=== PATIENT | female | born 1970 | race Caucasian/White ===

== ENCOUNTER → 2019-03-03 13:29 | Outpatient (CLI) | payer MEDICAID, SELFPAY ==
[2019-03-03 14:00] LABS: Basophils # 0.1 K/mm3 (0-0.2); Basophils % 1.1 % (0.1-2.0); Eosinophils # 0.2 K/mm3 (0.0-0.4); Eosinophils % 1.9 % (0.1-12.0); Hematocrit 46.9 % (37.0-47.0); Hemoglobin 14.6 g/dL (12.2-16.2); Lymphocytes # 2.1 K/mm3 (0.7-4.5); Lymphocytes % 24.2 % (10-50); Mean Corpuscular HGB Conc 31.2 g/dL (31.8-35.4); Mean Corpuscular Volume 93.2 fl (81-99); Mean Platelet Volume 7.7 fl (7.4-10.4); Monocytes # 0.5 K/mm3 (0.1-1.0); Monocytes % 5.6 % (1.7-9.3); Neutrophils # 5.9 K/mm3 (1.8-7.8); Neutrophils % 67.1 % (37.0-80.0); Platelet Count 483 K/mm3 (142-424); Red Blood Count 5.03 M/mm3 (4.20-5.40); Red Cell Distribution Width 14.5 % (11.5-17.5); White Blood Count 8.7 K/mm3 (4.8-10.8)
[2019-03-03 14:10] LABS: Amphetamine/Metha Screen,Urine Negative ng/mL (<1000); Barbiturates Screen,Urine Negative ng/mL (<200); Benzodiazepines Screen,Urine Negative ng/mL (<200); Cannabinoid Screen,Urine Positive ng/mL (<50); Cocaine Screen,Urine Negative ng/mL (<300); Methadone Screen,Urine Negative ng/mL (<300); Opiate Screen,Urine Negative ng/mL (<300); Phencyclidine Screen,Urine Negative ng/mL (<25)
[2019-03-03 15:03] LABS: Alanine Aminotransferase 368 U/L (12-78); Albumin/Globulin Ratio 0.9 (1.1-1.8); Alkaline Phosphatase 244 U/L (46-116); Anion Gap 15.3 mEq/L (5-15); Aspartate Amino Transferase 209 U/L (15-37); Bilirubin,Total 0.5 mg/dL (0.2-1.0); Blood Urea Nitrogen 12 mg/dL (7-18); Calcium 9.4 mg/dL (8.5-10.1); Carbon Dioxide 29 mmol/L (21.0-32.0); Chloride 104 mmol/L (98-107); Chol/HDL Ratio 3.4 (1-3.5); Cholesterol 171 mg/dL (140-200); Creatinine,Serum 0.95 mg/dL (0.55-1.02); Estimated Glomerular Filt Rate 63 ml/min (>60); Free T4 (Free Thyroxine) 0.97 ng/dl (0.76-1.46); GFR (African American) 76 ML/MIN (>60); Globulin 4.5 gm/dl (1.3-3.2); Glucose 92 mg/dL (74-106); HDL Cholesterol 51 mg/dL (29-89); LDL Cholesterol 100 mg/dL (0-130); Potassium 4.3 mmoL/L (3.5-5.1); Sodium 144 mmol/L (136-145); Thyroid Stimulating Hormone 6.03 uIU/ml (0.358-3.740); Total Protein,Serum 8.5 gm/dL (6.4-8.2); Triglycerides 99 mg/dL (30-200); VLDL Cholesterol 20 mg/dL (0-40)
[2019-03-04 07:14] LABS: Hep A Ab, IgM Negative (Negative); Hepatitis B Core Antibody IgM Negative (Negative); Hepatitis B Surface Antigen Negative (Negative)
[2019-03-04 17:48] LABS: Hepatitis C Antibody >11.0 s/co ratio (0.0-0.9); Vitamin D 25 Hydroxy 43.9 ng/mL (30.0-100.0)
[2019-03-10 16:11] LABS: HCV Genotype Charge YES; Hepatitis C Genotype 3 (.)
== END ==
PROVIDERS: Visit Provider Emergency Medicine
DX: R53.83 Other fatigue (principal); M54.9 Dorsalgia, unspecified; R94.5 Abnormal results of liver function studies; M54.16 Radiculopathy, lumbar region; R51 Headache; Z72.0 Tobacco use
CPT/HCPCS: 80053; 80061; 80074; 80305; 82652; 84439; 84443; 85025; 87522; 87902

== ENCOUNTER 2019-03-26 10:17 | Outpatient (CLI) | payer MEDICAID, SELFPAY ==
[2019-03-26 10:35] VITALS: BMI 25.2
[2019-03-26 10:43] VITALS: BP 138/87; PULSE 62; RESP 18; TEMP 36.2; O2SAT 98
[2019-03-26 11:13] LABS: Anion Gap 12.6 mEq/L (5-15); Blood Urea Nitrogen 13 mg/dL (7-18); Calcium 9.5 mg/dL (8.5-10.1); Carbon Dioxide 27 mmol/L (21.0-32.0); Chloride 103 mmol/L (98-107); Creatinine Clearance Estimated 81 mL/min (50-200); Creatinine,Serum 0.98 mg/dL (0.55-1.02); Estimated Glomerular Filt Rate 61 ml/min (>60); GFR (African American) 73 ML/MIN (>60); Glucose 138 mg/dL (74-106); Potassium 3.6 mmoL/L (3.5-5.1); Sodium 139 mmol/L (136-145)
[2019-03-26 12:15] VITALS: BP 115/91; PULSE 78; RESP 20; TEMP 36.2; O2SAT 97
[2019-03-26 12:50] VITALS: BP 128/79; PULSE 55; RESP 20
== END 2019-03-26 12:50 | disposition home or self-care (01) ==
LOC: INF 10:21
PROVIDERS: PCP Emergency Medicine; Visit Provider Emergency Medicine
DX: T67.5XXA Heat exhaustion, unspecified, initial encounter (principal)
CPT/HCPCS: 80048; 96360; 96361; 96375; J2405

== ENCOUNTER → 2019-03-30 10:12 | Outpatient (CLI) | payer MEDICAID, SELFPAY ==
--- NOTE | 2019-03-30 10:18 | MR_ITS ---
MR lumbar spine wo con HISTORY: ITS.REASON: back pain ORDERING PHYSICIAN: John John MD PATIENT AGE: 48 years Comparison: None TECHNIQUE: Standard multiplanar multiecho sequences are performed without contrast. 3-D MIP and myelographic images are also rendered and reviewed FINDINGS: Alignment, vertebral body heights and signal from the osseous marrow elements are normal. Disc space heights are normal. L1-2 shows a small central posterior protrusion of the nucleus pulposus without a mild ventral thecal sac deformity. There is no central canal stenosis or lateralization. The remainder of the disc levels are normal without bulges or herniation or central canal stenosis. Conus area and cauda equina nerve roots are normal. Nerve root and foraminal areas are normal. Paraspinal structures are unremarkable. There is mild to moderate facet hypertrophy bilaterally without mass effect at L5-S1. The remainder of the posterior elements are intact and appear normal. IMPRESSION: L1-2 small central disc herniation of the protrusion type with only mild ventral thecal sac deformity.
== END ==
PROVIDERS: PCP Emergency Medicine; Visit Provider Emergency Medicine
DX: M54.5 Low back pain (principal); R39.89 Other symptoms and signs involving the genitourinary system
CPT/HCPCS: 72148; 76376; 87086

== ENCOUNTER → 2019-03-30 17:01 | Outpatient (CLI) | payer MEDICAID, SELFPAY | PROVIDERS: Visit Provider Emergency Medicine | DX: R39.89 Other symptoms and signs involving the genitourinary system (principal) | CPT/HCPCS: 87086 ==

== ENCOUNTER → 2019-04-13 17:51 | Outpatient (CLI) | payer MEDICAID, SELFPAY ==
[2019-04-13 19:05] LABS: Amphetamine/Metha Screen,Urine Negative ng/mL (<1000); Barbiturates Screen,Urine Negative ng/mL (<200); Benzodiazepines Screen,Urine Positive ng/mL (<200); Cannabinoid Screen,Urine Positive ng/mL (<50); Cocaine Screen,Urine Negative ng/mL (<300); Methadone Screen,Urine Negative ng/mL (<300); Opiate Screen,Urine Positive ng/mL (<300); Phencyclidine Screen,Urine Negative ng/mL (<25)
[2019-04-21 07:18] LABS: Alprazolam Negative (Cutoff=100); Benzodiazepines Positive ng/mL (Cutoff=100); Clonazepam Negative (Cutoff=100); Flurazepam Negative (Cutoff=100); Lorazepam Negative (Cutoff=100); Midazolam Negative (Cutoff=100); Temazepam Positive (.); Triazolam Negative (Cutoff=100)
== END ==
PROVIDERS: Visit Provider Emergency Medicine
DX: Z79.899 Other long term (current) drug therapy (principal)
CPT/HCPCS: 80305; 80346

== ENCOUNTER → 2019-08-25 13:54 | Outpatient (CLI) | payer MEDICAID, SELFPAY ==
--- NOTE | 2019-08-25 13:59 | XR_ITS ---
PROCEDURE: XR WRIST LT MIN 3V CLINICAL INDICATION: left wrist pain Left wrist pain COMPARISON: No exams were available for comparison FINDINGS: There has been prior ORIF with a volar bone plate. Mild bony hypertrophic changes are present along the medial aspect of the distal radius. There is an ununited ulnar styloid avulsion fracture versus ununited ossification center. Small calcific density is present lateral to the 1st metacarpal-carpal joint. No acute fracture or dislocation. IMPRESSION: Prior ORIF old distal radial fracture with chronic changes, no acute finding Dictated by: Lukasz Harman MD 08/25/2019 14:15 Electronically signed by Lukasz Harman MD in [place] 08/25/2019 14:15
[2019-08-25 15:52] LABS: Basophils # 0.1 K/mm3 (0-0.2); Basophils % 1.7 % (0.1-2.0); Eosinophils # 0.4 K/mm3 (0.0-0.4); Eosinophils % 6.5 % (0.1-12.0); Hematocrit 41.8 % (37.0-47.0); Hemoglobin 13.3 g/dL (12.2-16.2); Lymphocytes # 2.6 K/mm3 (0.7-4.5); Lymphocytes % 44.7 % (10-50); Mean Corpuscular HGB Conc 31.8 g/dL (31.8-35.4); Mean Corpuscular Hemoglobin 29.3 pg (27.0-31.2); Mean Corpuscular Volume 92.3 fl (81-99); Mean Platelet Volume 7.4 fl (7.4-10.4); Monocytes # 0.3 K/mm3 (0.1-1.0); Monocytes % 5.5 % (1.7-9.3); Neutrophils # 2.4 K/mm3 (1.8-7.8); Neutrophils % 41.6 % (37.0-80.0); Platelet Count 414 K/mm3 (142-424); Red Blood Count 4.53 M/mm3 (4.20-5.40); Red Cell Distribution Width 13.9 % (11.5-17.5); White Blood Count 5.8 K/mm3 (4.8-10.8)
[2019-08-25 16:10] LABS: INR 0.93 (0.9-1.1); Prothrombin Time 9.7 seconds (9.4-11.8)
[2019-08-25 17:12] LABS: Alanine Aminotransferase 251 U/L (12-78); Albumin Level 3.7 gm/dL (3.4-5.0); Albumin/Globulin Ratio 0.9 (1.1-1.8); Alkaline Phosphatase 324 U/L (46-116); Anion Gap 13.5 mEq/L (5-15); Aspartate Amino Transferase 98 U/L (15-37); Bilirubin,Total 0.3 mg/dL (0.2-1.0); Blood Urea Nitrogen 22 mg/dL (7-18); Calcium 8.7 mg/dL (8.5-10.1); Carbon Dioxide 27 mmol/L (21.0-32.0); Chloride 102 mmol/L (98-107); Creatinine,Serum 0.93 mg/dL (0.55-1.02); Estimated Glomerular Filt Rate 64 ml/min (>60); GFR (African American) 78 ML/MIN (>60); Globulin 4.1 gm/dl (1.3-3.2); Glucose 95 mg/dL (74-106); Potassium 4.5 mmoL/L (3.5-5.1); Sodium 138 mmol/L (136-145); Total Protein,Serum 7.8 gm/dL (6.4-8.2)
[2019-09-07 15:25] LABS: HCV Genotype 3
[2019-09-07 15:26] LABS: Hep A Ab, IgM NEGATIVE; Hep A Ab, Total POSITIVE
[2019-09-07 15:28] LABS: Hepatitis B Surface Antigen NON REACTIVE
[2019-09-07 15:29] LABS: Hep B Core Ab, Total NEGATIVE
[2019-09-07 15:30] LABS: HIV Screen 4th Generation wRfx NON REACTIVE
== END ==
PROVIDERS: PCP Emergency Medicine; Visit Provider Orthopaedic Surgery
DX: M25.532 Pain in left wrist (principal); B19.20 Unspecified viral hepatitis C without hepatic coma
CPT/HCPCS: 36415; 73110; 80053; 85025; 85610; 86703; 86704; 86706; 86708; 87340; 87522; G0432

== ENCOUNTER → 2019-08-25 15:24 | Outpatient (CLI) | payer MEDICAID, SELFPAY | PROVIDERS: Visit Provider Emergency Medicine | DX: B19.20 Unspecified viral hepatitis C without hepatic coma (principal) | CPT/HCPCS: 36415; 80053; 85025; 85610; 86703; 86704; 86706; 86708; 87340; 87522; G0432 ==

== ENCOUNTER → 2019-09-22 14:19 | Outpatient (CLI) | payer MEDICAID, SELFPAY ==
[2019-09-22 16:24] LABS: Amphetamine/Metha Screen,Urine Positive ng/mL (<1000); Barbiturates Screen,Urine Negative ng/mL (<200); Benzodiazepines Screen,Urine Negative ng/mL (<200); Cannabinoid Screen,Urine Negative ng/mL (<50); Cocaine Screen,Urine Negative ng/mL (<300); Methadone Screen,Urine Negative ng/mL (<300); Opiate Screen,Urine Negative ng/mL (<300); Phencyclidine Screen,Urine Negative ng/mL (<25)
[2019-09-30 22:39] LABS: Amphetamine Positive (.); Amphetamines Positive (.); Methamphetamine Positive (.)
[2019-10-01 00:01] LABS: Amphetamine (GC/MS) 954 ng/mL (Cutoff=500); Methamphetamine (GC/MS) 3208 ng/mL (Cutoff=500)
== END ==
PROVIDERS: Visit Provider Emergency Medicine
DX: Z79.899 Other long term (current) drug therapy (principal)
CPT/HCPCS: 80305; 80324

== ENCOUNTER → 2019-11-02 14:04 | Outpatient (POV) | payer SELFPAY | PROVIDERS: PCP Emergency Medicine; Visit Provider Specialist | DX: M79.642 Pain in left hand (principal); R20.2 Paresthesia of skin | CPT/HCPCS: 95886; 95908 ==

== ENCOUNTER 2019-12-30 17:35 | Emergency (ER) | payer MEDICAID, SELFPAY ==
[2019-12-30 17:36] VITALS: BP 125/86; PULSE 88; RESP 20; TEMP 36.6; O2SAT 96; BMI 22.6
--- NOTE | 2019-12-30 17:40 | CT_ITS ---
PROCEDURE: CT LUMBAR SPINE WO CON CLINICAL HISTORY: PAIN, low back pain TECHNIQUE: Axial images obtained with sagittal and coronal reformats. All CT scans at the facility use one or more dose reduction, viz: automated exposure control, ma/kV adjustment per patient size (including targeted exams where dose is matched to indication, i.e. head), or iterative reconstruction technique. FINDINGS: There is normal alignment. No acute fracture or dislocation. No lytic or blastic change. T11-T12: Mild degenerative disc disease. T12-L1: Minimal anterior spurring. L1-L2: Minimal bulging disc. L3-L4: Small benign-appearing cystic area involves the superior facet at L4 at 4 mm. L4-5: Concentric bulging disc with left foraminal disc protrusion causing foraminal narrowing on the left L5-S1: Concentric bulging disc eccentric toward the right with mild right lateral recess and foraminal narrowing. L4-5: Unremarkable. IMPRESSION: 1. No acute finding. 2. L3-L4: Small benign-appearing cystic area involves the superior facet at L4 at 4 mm. 3. L4-5: Concentric bulging disc with left foraminal disc protrusion causing foraminal narrowing on the left 4. L5-S1: Concentric bulging disc eccentric toward the right with mild right lateral recess and foraminal narrowing. Dictated by: Lukasz Harman MD 12/31/2019 08:21 Electronically signed by Lukasz Harman MD in [place] 12/31/2019 08:21
--- NOTE | 2019-12-30 18:36 | HMH.EDBACK ---
ED Disposition Clinical Impression: Strain of lumbar region, Lumbar radiculopathy, Back Pain Disposition: Home, Self-Care Condition on Discharge: Good Instructions: DI for Low Back Pain Additional Instructions: Please follow-up with your primary care physician if condition fails to improve. Prescriptions: methylPREDNISolone [Medrol 4mg tab] 4 mg PO DIRECTED #21 tab Transmission Status: Pending to [id number] Tizanidine HCl [Zanaflex 4mg tablet] 4 - 8 mg PO TID 8 Days #45 tab Transmission Status: Pending to [id number] Referrals: Provider,Referral, [Primary Care Provider] - - Critical Care Critical Care Time: No Attestation: On 12/30/19, the high probability of a clinically significant, sudden or life threatening deterioration of the following system(s) required my full and direct attention, intervention and personal management. The time I documented below is in addition to time spent performing reported procedures but includes the following listed in this critical care notation. Medical Decision Making - Medical Records Medical records reviewed: Yes: I reviewed the patient's medical records. - Coleman Inquiry Pt receiving controlled substance: No Vital Signs: 12/30/19 17:36 Temperature 98 F Temperature Source Oral Pulse Rate [Right] 88 Respiratory Rate 20 Blood Pressure [Right Arm] 125/86 Blood Pressure Mean [Right Arm] 99 02 Sat by Pulse Oximetry 96 - Lab Data Lab results reviewed: Yes: I reviewed the patient's lab results. Orders (Tests/Meds): ED MEDICATIONS Discontinued Medications Generic Name Dose Route Start Last Admin Trade Name Freq PRN Reason Stop Dose Admin Ketorolac Tromethamine 60 mg 12/30/19 18:22 12/30/19 18:29 Toradol 60mg/2ml Vial IM 12/30/19 18:23 60 mg ONCE ONE Administration Methylprednisolone Sodium Succinate 125 mg 12/30/19 18:22 12/30/19 18:31 Solu-Medrol 125mg/2ml Vial IM 12/30/19 18:23 125 mg ONCE ONE Administration ORDERS Category Date Time Status CT lumbar spine wo con Stat Cat Scan 12/30/19 17:40 Taken - CT Data CT Scan: L-Spine Time Received: 16:11 Preliminary Findings: Normal/NAD (No acute findings compared to last CT.) Back Pain HPI - General Chief Complaint: Back Pain/Injury Stated Complaint: back pain Time Seen by Provider: 12/30/19 18:33 Mode of Arrival: EMS Source of Information: Patient Limitations: No Limitations Description of Symptoms (Recalled from ER Triage Doc. by RN): BACK PAIN IN THE LUMBAR REGION, STATES SHE HAS CHRONIC BACK PAIN AND WHEN BENDING OVER SHE STATED THE PAIN BECAME WORSE. DENIES FEVER, COUGH OR SOA. - History of Present Illness HPI Narrative: 49-year-old female presents the ED with acute on chronic back pain. She states that she was cleaning out her vinicius litter yesterday and when she picked it up she felt a strain or pop in her back. Since then she has been complaining of acute pain. She says she has a bad disc in her back and she feels like that it is worse now. She states her pain is 10 out of 10. She classifies it as sharp pain she denies any bowel or bladder incontinence. She states there are no alleviating factors exacerbating factors include any sort of movement or any sort of increasing intra-abdominal pressure. However she she is in the room with her knees flexed and her hip flexed at the waist getting some relief. Patient denies any recent fever shakes or chills. Patient also denies any shortness of breath cough or chest pain or headache. - Related Data Previous Rx's Medication Instructions Recorded gabapentin 600 mg tablet 600 mg PO TID #90 tab 12/08/19 hydrocodone 5 mg-acetaminophen 325 1 tab PO BID PRN #60 tab 12/08/19 mg tablet levothyroxine 50 mcg tablet 50 mcg PO DAILY #90 tab 12/08/19 meloxicam 7.5 mg tablet 7.5 mg PO DAILY 30 Days #30 tab 12/08/19 omeprazole 40 mg capsule,delayed 40 mg PO DAILY #90 cap 12/08/19 release topiram
[2019-12-30 18:47] VITALS: BP 120/85; PULSE 87; RESP 20; TEMP 36.8; O2SAT 98
== END 2019-12-30 19:11 | disposition home or self-care (01) ==
PROVIDERS: Emergency Provider Family Medicine; PCP Emergency Medicine
DX: S39.012A Strain of muscle, fascia and tendon of lower back, initial encounter (principal); M54.16 Radiculopathy, lumbar region; X50.0XXA Overexertion from strenuous movement or load, initial encounter; Y92.019 Unspecified place in single-family (private) house as the place of occurrence of the external cause; F17.210 Nicotine dependence, cigarettes, uncomplicated; E03.9 Hypothyroidism, unspecified
CPT/HCPCS: 72131; 96372; 99282

== ENCOUNTER → 2020-02-23 14:56 | Outpatient (CLI) | payer MEDICAID, SELFPAY | PROVIDERS: Visit Provider Nurse Practitioner Family | DX: M54.2 Cervicalgia (principal) | CPT/HCPCS: 87086 ==

== ENCOUNTER → 2021-04-24 14:06 | Outpatient (CLI) | payer MEDICAID, SELFPAY ==
[2021-04-24 14:31] LABS: Basophils # 0.1 K/mm3 (0-0.2); Basophils % 1.2 % (0.1-2.0); Eosinophils # 0.2 K/mm3 (0.0-0.4); Eosinophils % 1.4 % (0.1-12.0); Hematocrit 43.7 % (37.0-47.0); Hemoglobin 14.1 g/dL (12.2-16.2); Lymphocytes # 2.2 K/mm3 (0.7-4.5); Lymphocytes % 19.7 % (10-50); Mean Corpuscular HGB Conc 32.2 g/dL (31.8-35.4); Mean Corpuscular Hemoglobin 28.8 pg (27.0-31.2); Mean Corpuscular Volume 89.5 fl (81-99); Mean Platelet Volume 7.4 fl (7.4-10.4); Monocytes # 0.4 K/mm3 (0.1-1.0); Monocytes % 3.3 % (1.7-9.3); Neutrophils # 8.3 K/mm3 (1.8-7.8); Neutrophils % 74.4 % (37.0-80.0); Platelet Count 408 K/mm3 (142-424); Red Blood Count 4.89 M/mm3 (4.20-5.40); Red Cell Distribution Width 14.4 % (11.5-17.5); White Blood Count 11.2 K/mm3 (4.8-10.8)
[2021-04-24 14:50] LABS: Prothrombin Time 10.4 seconds (10.1-12.5)
[2021-04-24 15:35] LABS: Erythrocyte Sedimentation Rate 16 mm/hr (0-20)
[2021-04-24 16:10] LABS: Alanine Aminotransferase 29 U/L (12-78); Albumin Level 4.3 g/dl (3.5-5.0); Albumin/Globulin Ratio 1.3 (1.1-1.8); Alkaline Phosphatase 239 U/L (38-126); Anion Gap 13.4 mEq/L (5-15); Aspartate Amino Transferase 27 U/L (14-36); Bilirubin,Total 0.4 mg/dl (0.2-1.3); Blood Urea Nitrogen 18 mg/dl (7-17); Carbon Dioxide 23 mmol/L (22.0-30.0); Chloride 108 mmol/L (98-107); Cholesterol 230 mg/dl (140-200); Estimated Glomerular Filt Rate 76 ml/min (>60); GFR (African American) 92 ML/MIN (>60); Globulin 3.3 g/dL (1.3-3.2); Glucose 97 mg/dl (74-100); HDL Cholesterol 77 mg/dl (40-60); Potassium 4.4 mmoL/L (3.5-5.1); Sodium 140 mmol/L (136-145); Total Protein,Serum 7.6 g/dl (6.3-8.2); Triglycerides 342 mg/dl (30-150); VLDL Cholesterol 68 mg/dL (0-40)
[2021-04-24 16:22] LABS: Direct LDL Cholesterol 109.15 mg/dL (100-129)
[2021-04-24 16:27] LABS: Free T4 (Free Thyroxine) 1.09 ng/dl (0.78-2.19)
[2021-04-24 16:28] LABS: 25-OH Vitamin D, Total 18.9 ng/mL (30-100)
[2021-04-24 16:30] LABS: C-Reactive Protein < 0.3 mg/L (0-4)
[2021-04-24 16:41] LABS: Thyroid Stimulating Hormone 5.88 uIU/mL (0.465-4.68)
[2021-04-24 17:35] LABS: INR 0.87 (0.9-1.1)
[2021-04-26 08:21] LABS: HIV Screen 4th Generation wRfx Non Reactive (Non Reactive)
== END ==
PROVIDERS: Visit Provider Emergency Medicine
DX: B19.20 Unspecified viral hepatitis C without hepatic coma (principal); E55.9 Vitamin D deficiency, unspecified; Z11.4 Encounter for screening for human immunodeficiency virus [HIV]
CPT/HCPCS: 36415; 80053; 80061; 82306; 84439; 84443; 85025; 85610; 85651; 86140; 86703; 87522; 87902; G0432

== ENCOUNTER → 2021-05-11 13:39 | Outpatient (CLI) | payer MEDICAID, SELFPAY ==
--- NOTE | 2021-05-11 13:40 | MR_ITS ---
PROCEDURE: MR LUMBAR SPINE WO CON CLINICAL INDICATION: back pain Left-sided low back pain with bilateral feet leg numbness and tingling TECHNIQUE: Standard multiplanar multiecho sequences are performed without contrast. 3-D MIP and myelographic images are also rendered and reviewed FINDINGS: There is normal alignment. The spinal cord ends at the L1 level. Motion artifact somewhat obscures fine detail on the sagittal T2 weighted images. T12-L1: Minimal right paracentral disc protrusion slightly more prominent when compared to the previous exam without impingement. Minimal bulging disc L1-L2: Minimal right paracentral disc protrusion with minimal bulging disc. Not significantly changed. Minimal right lateral recess narrowing. L2-L3: Unremarkable. L3-L4: Unremarkable. L4-5: There is a small left foraminal disc protrusion not readily apparent on the previous study causing left foraminal narrowing L5-S1: Minimal bulging disc slightly eccentric toward the right. Facet hypertrophic change with mild bilateral foraminal narrowing No extruded herniated disc evident. IMPRESSION: 1. T12-L1: Minimal right paracentral disc protrusion slightly more prominent when compared to the previous exam without impingement. Minimal bulging disc 2. L1-L2: Minimal right paracentral disc protrusion with minimal bulging disc. Not significantly changed. Minimal right lateral recess narrowing. 3. L4-5: There is a small left foraminal disc protrusion not readily apparent on the previous study causing left foraminal narrowing 4. L5-S1: Minimal bulging disc slightly eccentric toward the right. Facet hypertrophic change with mild bilateral foraminal narrowing Dictated by: Lukasz Harman MD 05/16/2021 09:42 Lukasz Harman MD in [place] 05/16/2021 09:42
--- NOTE | 2021-05-11 13:40 | MR_ITS ---
PROCEDURE: MR HEAD/BRAIN WO CON CLINICAL INDICATION: headache COMPARISON: No exams were available for comparison TECHNIQUE: Routine multiplanar multi echo sequences are performed without gadolinium enhancement. FINDINGS: No midline shift, mass effect, intracranial hemorrhage, or hydrocephalus. The cerebellopontine angles, cerebellum, and brainstem have an unremarkable appearance. There are few punctate T2 white matter hyperintensities in the periventricular region in the frontal lobes nonspecific. No evidence of acute infarction. Hippocampal gyri are unremarkable in the temporal horns are symmetric. The pituitary, optic chiasm, corpus callosum, and craniocervical junction have an unremarkable appearance. No mastoid effusion or sinus air-fluid level. There is some minimal opacification of the right ethmoid sinus in there is mucosal thickening of the floor of the left maxillary sinus. IMPRESSION: No acute intracranial findings Dictated by: Lukasz Harman MD 05/11/2021 17:24 Lukasz Harman MD in [place] 05/11/2021 17:24
--- NOTE | 2021-05-11 15:35 | MM_ITS ---
PROCEDURE: MM DIG SCREENING MAMM BI W/CAD Digital Breast Tomosynthesis Included CLINICAL INDICATION: screening This is a baseline study. There is a history of breast cancer patient's maternal aunt and maternal cousin. COMPARISON: No exams were available for comparison TECHNIQUE: Standard CC and MLO images and 3D Tomosynthesis was obtained. R2 CAD reviewed. FINDINGS: . There is a single CAD marker deep within the right breast apparently secondary to minimal focal vascular calcification. There is a small round benign-appearing nodular density just deep to the nipple right breast. This likely is a small cyst but since this is a baseline study and with a somewhat weak history of lakshmi family breast cancer recommend the patient return for ultrasound examination right breast. There is a small nodular density near the axillary tail left breast likely a low-lying node. There are no suspicious microcalcifications. IMPRESSION: Fibrofatty parenchyma with asymmetric nodular density right breast BI-RAD Category: 0 Need Additional Imaging Evaluation FOLLOW-UP: IMM Immediate Follow-up Recommended (A letter has been sent to the patient regarding results of the study.) Dictated by: Dr. Dragan France MD 05/12/2021 15:22 Dr. Dragan France MD in [place] 05/12/2021 15:22
== END ==
PROVIDERS: PCP Emergency Medicine; Visit Provider Emergency Medicine
DX: Z12.31 Encounter for screening mammogram for malignant neoplasm of breast (principal); G43.909 Migraine, unspecified, not intractable, without status migrainosus; M54.9 Dorsalgia, unspecified; M54.5 Low back pain
CPT/HCPCS: 70551; 72148; 76376; 77063; 77067

== ENCOUNTER → 2021-08-22 19:08 | Outpatient (CLI) | payer MEDICAID, SELFPAY ==
[2021-08-22 20:38] LABS: Benzodiazepines Screen,Urine Negative ng/ml (<200)
[2021-08-22 20:39] LABS: Amphetamine/Metha Screen,Urine Positive ng/ml (<1000)
[2021-08-22 20:40] LABS: Barbiturates Screen,Urine Negative ng/ml (<200); Cannabinoid Screen,Urine Negative ng/ml (<50)
[2021-08-22 20:41] LABS: Cocaine Screen,Urine Negative ng/ml (<300)
[2021-08-22 20:42] LABS: Methadone Screen,Urine Negative ng/ml (<300); Opiate Screen,Urine Negative ng/ml (<300)
[2021-08-22 20:43] LABS: Phencyclidine Screen,Urine Negative ng/ml (<25)
== END ==
PROVIDERS: Visit Provider Emergency Medicine
DX: R82.90 Unspecified abnormal findings in urine (principal); Z79.899 Other long term (current) drug therapy
CPT/HCPCS: 80305; 87086

== ENCOUNTER 2022-01-24 13:32 | Emergency (ER) | payer MEDICAID, SELFPAY ==
[2022-01-24 13:33] VITALS: BP 142/90; PULSE 99; RESP 16; TEMP 36.7; O2SAT 98; BMI 24.8
--- NOTE | 2022-01-24 13:47 | XR_ITS ---
FINAL REPORT CLINICAL HISTORY: pain, fall FINDINGS: LEFT ANKLE: Three views of the left ankle were obtained. There is a chronic fracture of the distal fibula. There is no acute fracture or dislocation. There are [id number] degenerative changes. There are chronic calcifications inferior to the medial and lateral malleoli. There is lateral soft tissue swelling. IMPRESSION: Swelling with no acute bony abnormality. Reviewed, Interpreted and Dictated by Eduard Saravia III, MD Transcribed by Marko Mercado Authenticated by Eduard Saravia III, MD on 01/24/2022 03:44:13 PM [facility]
--- NOTE | 2022-01-24 13:48 | XR_ITS ---
FINAL REPORT CLINICAL HISTORY: weakness FINDINGS: The heart size is normal. The mediastinum is normal. There is right lung base atelectasis or pneumonia. There are no pleural effusions. There is no pneumothorax. There is no osseous abnormality. IMPRESSION: Right base atelectasis or pneumonia. Reviewed, Interpreted and Dictated by Eduard Saravia III, MD Transcribed by Marko Mercado Authenticated by Eduard Saravia III, MD on 01/24/2022 03:44:09 PM [facility]
--- NOTE | 2022-01-24 13:48 | HMH.EDGENADL ---
ED Disposition Clinical Impression: Opioid overdose Qualifiers: Encounter type: initial encounter Injury intent: accidental or unintentional Qualified Code(s): T40.2X1A - Poisoning by other opioids, accidental (unintentional), initial encounter Disposition: Left Against Medical Advice Condition on Discharge: Fair Instructions: DI for Altered Mental Status - Critical Care Critical Care Time: No Attestation: On , the high probability of a clinically significant, sudden or life threatening deterioration of the following system(s) required my full and direct attention, intervention and personal management. The time I documented below is in addition to time spent performing reported procedures but includes the following listed in this critical care notation. Medical Decision Making - Medical Records Medical records reviewed: Yes: I reviewed the patient's medical records. - Coleman Inquiry Pt receiving controlled substance: No Vital Signs: 01/24/22 13:33 01/24/22 14:00 Temperature 98.1 F Temperature Source Oral Pulse Rate 86 Pulse Rate [Radial] 99 H Respiratory Rate 16 18 Blood Pressure 125/88 Blood Pressure [Right Arm] 142/90 H Blood Pressure Mean 101 Blood Pressure Mean [Right Arm] 107 Blood Pressure Position [Right Arm] Sitting 02 Sat by Pulse Oximetry 98 96 Oxygen Delivery Method Room Air - Lab Data Lab results reviewed: Yes: I reviewed the patient's lab results. Lab Results 01/24/22 13:45: WBC 12.5 H, RBC 4.16 L, Hgb 12.0 L, Hct 37.3, MCV 89.7, MCH 28.8, MCHC 32.2, RDW 15.7, Plt Count 461 H, MPV 7.8, Neut % (Auto) 66.3, Lymph % (Auto) 25.1, Rooks % (Auto) 5.2, Eos % (Auto) 2.4, Baso % (Auto) 1.0, Neut # (Auto) 8.3 H, Lymph # (Auto) 3.1, Rooks # (Auto) 0.7, Eos # (Auto) 0.3, Baso # (Auto) 0.1 01/24/22 13:45: Sodium 143, Potassium 3.5, Chloride 106, Carbon Dioxide 31 H, Anion Gap 9.5, BUN 18 H, Creatinine 0.90, Estimated Creat Clear 82, Estimated GFR 66, Est GFR ( Amer) 80, Glucose 105 H, Calcium 9.3, Total Bilirubin 0.4, AST 35, ALT 207 H, Alkaline Phosphatase 214 H, Troponin I < 0.01, Total Protein 7.2, Albumin 4.0, Globulin 3.2, Albumin/Globulin Ratio 1.3 Result diagrams: 01/24/22 13:45 01/24/22 13:45 Orders (Tests/Meds): ORDERS Category Date Time Status Ankle XR - Left minimum 3 Views [XR ankle LT min 3V] Exams 01/24/22 13:47 Taken Stat XR chest portable Stat Exams 01/24/22 13:48 Taken Drug Screen,Urine Stat Lab 01/24/22 13:47 Ordered Troponin I Q3H Lab 01/24/22 17:00 Ordered Troponin I Q3H Lab 01/24/22 20:00 Ordered Urinalysis and Microscopic Stat Lab 01/24/22 13:46 Ordered Medical Decision Narrative: Dottie is a 51-year-old female presenting with chief complaint of transient unresponsiveness. Patient states she took too many Vicodin's at home and denies IV drug use. Given responsiveness to Narcan, patient was counseled that she should be observed for several hours to ensure that she does not become unresponsive again after Narcan wears off. She expressed understanding and I believe that at this time, she has decision-making capacity. She is alert, oriented and able to follow commands and answer questions appropriately. She expressed understanding regarding her condition. She initially agreed to lab work and EKG and observation. Within an hour, patient eloped from the emergency department prior to lab work for reassessment despite my counseling of importance of observation and risk to her health if she leaves. General Adult HPI - General Chief complaint: Altered Mental Status Stated complaint: od Time Seen by Provider: 01/24/22 13:45 Mode of Arrival: EMS Limitations: No Limitations Description of Symptoms (Recalled from ER Triage Doc. by RN): to ed per squad with report pt was found unresponsive at home by boyfriend and he started CPR. squad states pt was cynanotic at scene pt was bagged given narcan 4mg nasally and after iv was est. gave 2mg narcan iv. t
[2022-01-24 14:00] VITALS: BP 125/88; PULSE 86; RESP 18; O2SAT 96
[2022-01-24 14:00] LABS: Basophils # 0.1 K/mm3 (0-0.2); Eosinophils # 0.3 K/mm3 (0.0-0.4); Eosinophils % 2.4 % (0.1-12.0); Hematocrit 37.3 % (37.0-47.0); Lymphocytes # 3.1 K/mm3 (0.7-4.5); Lymphocytes % 25.1 % (10-50); Mean Corpuscular HGB Conc 32.2 g/dL (31.8-35.4); Mean Corpuscular Hemoglobin 28.8 pg (27.0-31.2); Mean Corpuscular Volume 89.7 fl (81-99); Mean Platelet Volume 7.8 fl (7.4-10.4); Monocytes # 0.7 K/mm3 (0.1-1.0); Monocytes % 5.2 % (1.7-9.3); Neutrophils # 8.3 K/mm3 (1.8-7.8); Neutrophils % 66.3 % (37.0-80.0); Platelet Count 461 K/mm3 (142-424); Red Blood Count 4.16 M/mm3 (4.20-5.40); Red Cell Distribution Width 15.7 % (11.5-17.5); White Blood Count 12.5 K/mm3 (4.8-10.8)
[2022-01-24 14:03] LABS: Chloride 106 mmol/L (98-107); Sodium 143 mmol/L (136-145)
[2022-01-24 14:04] LABS: Potassium 3.5 mmoL/L (3.5-5.1)
[2022-01-24 14:06] LABS: Alanine Aminotransferase 207 U/L (12-78); Albumin/Globulin Ratio 1.3 (1.1-1.8); Alkaline Phosphatase 214 U/L (38-126); Anion Gap 9.5 mEq/L (5-15); Aspartate Amino Transferase 35 U/L (14-36); Bilirubin,Total 0.4 mg/dl (0.2-1.3); Blood Urea Nitrogen 18 mg/dl (7-17); Calcium 9.3 mg/dl (8.4-10.2); Carbon Dioxide 31 mmol/L (22.0-30.0); Creatinine Clearance Estimated 82 mL/min (50-200); Estimated Glomerular Filt Rate 66 ml/min (>60); GFR (African American) 80 ML/MIN (>60); Globulin 3.2 g/dL (1.3-3.2); Glucose 105 mg/dl (74-100); Total Protein,Serum 7.2 g/dl (6.3-8.2)
[2022-01-24 14:20] LABS: Troponin I < 0.01 ng/ml (0.00-0.034)
--- NOTE | 2022-01-24 14:27 | PC.NURSE ---
pt took or accidentally pulled iv out
--- NOTE | 2022-01-24 14:31 | ECG_ITS ---
APPROVED REPORT Exam: Resting ECG HR:86 bpm ECG Measurements Heart Rate 86 AXES MA 136 P 18 QRSd 81 QRS -14 QT 366 T 1 QTc 409 Conclusion SINUS RHYTHM WITH SINUS ARRHYTHMIA Left atrial abnormality Late R wave progression ABNORMAL ECG UNCONFIRMED REPORT Electronically signed by : Omero Santos MD 01/25/2022 08:43:35
[2022-01-24 17:39] VITALS: BP 0/0; PULSE 0; RESP 0; TEMP -17.7; TEMP 0; O2SAT 0
== END 2022-01-24 17:49 | disposition left against medical advice (07) ==
PROVIDERS: Emergency Provider Emergency Medicine
DX: T40.2X1A Poisoning by other opioids, accidental (unintentional), initial encounter (principal); E03.9 Hypothyroidism, unspecified; G43.709 Chronic migraine without aura, not intractable, without status migrainosus; M79.672 Pain in left foot; Z87.891 Personal history of nicotine dependence
CPT/HCPCS: 71045; 73610; 80053; 84484; 85025; 93005; 99284

== ENCOUNTER → 2022-01-29 12:51 | Outpatient (CLI) | payer MEDICAID, SELFPAY ==
[2022-01-29 14:08] LABS: Amphetamine/Metha Screen,Urine Positive ng/ml (<1000)
[2022-01-29 14:09] LABS: Barbiturates Screen,Urine Negative ng/ml (<200); Benzodiazepines Screen,Urine Negative ng/ml (<200)
[2022-01-29 14:10] LABS: Cannabinoid Screen,Urine Positive ng/ml (<50)
[2022-01-29 14:11] LABS: Cocaine Screen,Urine Negative ng/ml (<300); Methadone Screen,Urine Negative ng/ml (<300)
[2022-01-29 14:12] LABS: Opiate Screen,Urine Negative ng/ml (<300)
[2022-01-29 14:14] LABS: Phencyclidine Screen,Urine Negative ng/ml (<25)
== END ==
PROVIDERS: PCP Emergency Medicine; Visit Provider Emergency Medicine
DX: Z79.899 Other long term (current) drug therapy (principal)
CPT/HCPCS: 80305

== ENCOUNTER 2023-05-31 20:15 | Emergency (ER) | payer MEDICAID, SELFPAY ==
[2023-05-31 20:15] VITALS: BP 149/90; PULSE 57; RESP 24; TEMP 36.7; O2SAT 95; BMI 26.6
--- NOTE | 2023-05-31 20:27 | CT_ITS ---
PROCEDURE INFORMATION: Exam: CT Abdomen And Pelvis With Contrast Exam date and time: 05/31/2023 9:35 PM Age: 53 years old Clinical indication: Abdominal pain; Additional info: Previous biliary stent, severe abd pain epi/ruq TECHNIQUE: Imaging protocol: Computed tomography of the abdomen and pelvis with contrast. Radiation optimization: All CT scans at this facility use at least one of these dose optimization techniques: automated exposure control; mA and/or kV adjustment per patient size (includes targeted exams where dose is matched to clinical indication); or iterative reconstruction. Contrast material: ISOVUE; Contrast volume: 75 ml; Contrast route: IV; REPORTING DATA: Count of CT and Cardiac NM exams in prior 12 months: This patient has received 0 known CTs and 0 known cardiac nuclear medicine studies in the 12 months prior to the current study. COMPARISON: CT ABDOMEN PELVIS W CON 09/22/2019 12:28 PM FINDINGS: Lungs: Minimal dependent opacity in the included right lung base, likely atelectasis. Mediastinal space: Mild circumferential wall thickening of the lower esophagus. Liver: Liver is normal. No lesions. Gallbladder and bile ducts: Status post cholecystectomy. Dilated CBD measuring 1.3 cm in diameter on coronal view, stable from prior. Pancreas: Mild prominence of the pancreatic duct is stable from prior, measures 4-5 mm in diameter proximally, unchanged. Pancreas is otherwise unremarkable. Spleen: Spleen is normal. Adrenal glands: Adrenal glands are normal. No mass. Kidneys and ureters: Kidneys are normal. No renal stones seen. No hydronephrosis or hydroureter. Stomach and bowel: No evidence of bowel obstruction or acute bowel abnormality. Few colonic diverticula without evidence of diverticulitis. Appendix: No evidence of appendicitis. Intraperitoneal space: No free air. No significant fluid collection. Vasculature: Scattered pelvic phleboliths similar to prior. Lymph nodes: No enlarged lymph nodes. Urinary bladder: Urinary bladder is unremarkable for degree of distention. Reproductive: Status post hysterectomy. No adnexal mass. Bones/joints: No acute osseous abnormality or suspicious osseous lesion. Mild multilevel degenerative changes of the included spine. Soft tissues: Stable minimal fat containing umbilical hernia. Umbilical piercing with artifact noted. IMPRESSION: 1. No acute abnormality in the abdomen or pelvis. 2. Mild wall thickening of the lower esophagus which could be related to degree of distention and/or esophagitis, correlate clinically. 3. Chronic and incidental findings as above.
--- NOTE | 2023-05-31 20:29 | HMH.EDGENADL ---
Discharge Plan Disposition Patient Disposition: Home, Self-Care Prescriptions Prescriptions: New ondansetron 4 mg tablet,disintegrating 4 mg PO Q8H PRN (Reason: nausea and vomiting) 4 Days Qty: 12 0RF No Action cholecalciferol (vitamin D3) 25 mcg (1,000 unit) capsule 25 mcg PO DAILY Qty: 90 0RF clonazepam [Klonopin] 0.5 mg tablet 0.5 mg PO BID Qty: 30 0RF hydrocodone-acetaminophen 7.5-325 mg tablet 1 tab PO TID 14 Days Qty: 42 0RF gabapentin 600 mg tablet 600 mg PO TID Qty: 90 0RF omeprazole 40 mg capsule,delayed release(DR/EC) See Rx Instructions .ROUTE .COMPLEX Qty: 30 1RF Dose Instruction: TAKE 1 CAPSULE BY MOUTH EVERY DAY Rx Instructions: TAKE 1 CAPSULE BY MOUTH EVERY DAY tramadol 50 mg tablet 50 mg PO BID Qty: 24 0RF tizanidine 4 mg tablet See Rx Instructions .ROUTE .COMPLEX Qty: 90 2RF Dose Instruction: TAKE 1 TABLET BY MOUTH THREE TIMES A DAY NEEDED FOR MUSCLE SPASTICITY Rx Instructions: TAKE 1 TABLET BY MOUTH THREE TIMES A DAY NEEDED FOR MUSCLE SPASTICITY cholecalciferol (vitamin D3) 1,250 mcg (50,000 unit) capsule See Rx Instructions .ROUTE .COMPLEX Qty: 5 2RF Dose Instruction: TAKE 1 CAPSULE BY MOUTH WEEKLY Rx Instructions: TAKE 1 CAPSULE BY MOUTH WEEKLY trazodone 50 mg tablet See Rx Instructions .ROUTE .COMPLEX Qty: 30 3RF Dose Instruction: TAKE 1 TABLET BY MOUTH EVERY DAY Rx Instructions: TAKE 1 TABLET BY MOUTH EVERY DAY levothyroxine 50 mcg tablet See Rx Instructions .ROUTE .COMPLEX Qty: 90 0RF Dose Instruction: TAKE ONE TABLET BY MOUTH ONCE DAILY Rx Instructions: TAKE ONE TABLET BY MOUTH ONCE DAILY Referrals Follow up/Referrals: John John MD [Primary Care Provider] - See instructions Activity Restrictions/Add. Instructions Additional Instructions/Restrictions: At this time is felt you are safe to be discharged home. If new or worsening symptoms please do not hesitate to return the emergency department. Please follow-up on an outpatient basis for your thickened esophagus. Please take your medications as prescribed. Clinical Impressions Clinical Impression: Abdominal pain, Esophageal thickening Instructions Patient Instructions: DI for Acute Abdominal Pain Discharge ED Provider: Daron Lara General Adult HPI General Chief complaint: Abdominal Pain Stated complaint: Abd pain Time Seen by Provider: 05/31/23 20:22 History of Present Illness HPI narrative: Patient is a 53-year-old female with past medical history of previous cholecystectomy, previous hysterectomy, biliary sludge status post stenting last year who presents emergency department for evaluation of abdominal pain. Onset was acute, over the last 24 hours. Patient states that she was lost to follow-up and was supposed to have her biliary stent removed sometime last year. There is associated vomiting that is nonbloody, diffuse abdominal pain that is worse in the epigastric region. Patient is still stooling appropriately. Pain is severe in intensity. No other acute complaints at this time. Related Data Previous Rx's Medication Instructions Recorded cholecalciferol (vitamin D3) 25 25 mcg PO DAILY #90 caps 08/22/21 mcg (1,000 unit) capsule omeprazole 40 mg capsule,delayed See Rx Instructions .Route 10/20/21 release .COMPLEX #30 caps tramadol 50 mg tablet 50 mg PO BID #24 tabs 11/03/21 cholecalciferol (vitamin D3) 1,250 See Rx Instructions .Route 12/14/21 mcg (50,000 unit) capsule .COMPLEX #5 caps tizanidine 4 mg tablet See Rx Instructions .Route 12/14/21 .COMPLEX #90 tabs trazodone 50 mg tablet See Rx Instructions .Route 12/14/21 .COMPLEX #30 tabs clonazepam 0.5 mg tablet (Klonopin) 0.5 mg PO BID #30 tabs 01/29/22 gabapentin 600 mg tablet 600 mg PO TID #90 tabs 01/29/22 hydrocodone 7.5 mg-acetaminophen 1 tab PO TID 2 weeks #42 tabs 01/29/22 325 mg tablet levothyroxine 50 mcg t
[2023-05-31 20:44] LABS: Basophils % 0.4 % (0.1-2.0); Eosinophils # 0.2 K/mm3 (0.0-0.4); Eosinophils % 2.6 % (0.1-12.0); Hematocrit 42.1 % (37.0-47.0); Hemoglobin 12.9 g/dL (12.2-16.2); Lymphocytes # 1.6 K/mm3 (0.7-4.5); Lymphocytes % 18.6 % (10-50); Mean Corpuscular HGB Conc 30.7 g/dL (31.8-35.4); Mean Corpuscular Hemoglobin 27.9 pg (27.0-31.2); Mean Corpuscular Volume 90.7 fl (81-99); Mean Platelet Volume 8.6 fl (7.4-10.4); Monocytes # 0.3 K/mm3 (0.1-1.0); Monocytes % 3.9 % (1.7-9.3); Neutrophils # 6.4 K/mm3 (1.8-7.8); Neutrophils % 74.5 % (37.0-80.0); Platelet Count 305 K/mm3 (142-424); Red Blood Count 4.64 M/mm3 (4.20-5.40); Red Cell Distribution Width 13.6 % (11.5-17.5); White Blood Count 8.5 K/mm3 (4.8-10.8)
[2023-05-31 20:45] LABS: Chloride 107 mmol/L (98-107); Sodium 140 mmol/L (136-145)
[2023-05-31 20:46] LABS: Potassium 3.8 mmoL/L (3.5-5.1)
[2023-05-31 20:48] LABS: Alanine Aminotransferase 15 U/L (12-78); Alkaline Phosphatase 113 U/L (38-126); Anion Gap 7.8 mEq/L (5-15); Aspartate Amino Transferase 22 U/L (14-36); Bilirubin,Total 0.3 mg/dl (0.2-1.3); Blood Urea Nitrogen 18 mg/dl (7-17); Carbon Dioxide 29 mmol/L (22.0-30.0); Estimated Glomerular Filt Rate 47 ml/min (>60); GFR (African American) 57 ML/MIN (>60); Lipase 79 U/L (23-300)
--- NOTE | 2023-05-31 20:48 | PC.NURSE ---
rounded on pt and took her a warm blanket for comfort. no new complaints at this time.
[2023-05-31 20:49] LABS: Albumin Level 3.8 g/dl (3.5-5.0); Albumin/Globulin Ratio 1.1 (1.1-1.8); Calcium 8.5 mg/dl (8.4-10.2); Globulin 3.6 g/dL (1.3-3.2); Glucose 114 mg/dl (74-100); Total Protein,Serum 7.4 g/dl (6.3-8.2)
--- NOTE | 2023-05-31 22:01 | PC.NURSE ---
Rounded on patient , no needs voiced at this time.
[2023-05-31 22:05] LABS: Microscopic, Urine URINE MICROSCOPIC (MICROSCOPIC)
[2023-05-31 22:19] LABS: Appearance,Urine CLEAR (Clear); Bilirubin,Urine Negative (Negative); Blood, Urine Negative (Negative); Color,Urine YELLOW (Yellow); Glucose,Urine (UA) Negative (Negative); Ketones,Urine Negative (Negative); Leukocyte Esterase,Urine Negative (Negative); Nitrate,Urine Negative (Negative); Protein,Urine Negative (Negative); Urobilinogen,Urine 0.2 EU/dl (0.2)
[2023-05-31 22:21] LABS: Bacteria,Urine Trace /lpf; RBC,Urine Occasional #/hpf (0-3)
--- NOTE | 2023-05-31 23:15 | PC.NURSE ---
Water given to patient for PO challenge.
[2023-05-31 23:52] VITALS: BP 129/83; PULSE 58; RESP 18; TEMP 36.7; O2SAT 99
== END 2023-05-31 23:53 | disposition home or self-care (01) ==
PROVIDERS: Emergency Provider Emergency Medicine; PCP Emergency Medicine
DX: R10.84 Generalized abdominal pain (principal); K22.89 Other specified disease of esophagus; F17.210 Nicotine dependence, cigarettes, uncomplicated
CPT/HCPCS: 74177; 80053; 81001; 83690; 85025; 96361; 96374; 96375; 99285; J2405; Q9967

== ENCOUNTER → 2023-06-18 09:05 | Outpatient (CLI) | payer MEDICAID, SELFPAY ==
[2023-06-18 16:46] LABS: Amphetamine/Metha Screen,Urine Negative ng/ml (<1000)
[2023-06-18 16:47] LABS: Barbiturates Screen,Urine Negative ng/ml (<200)
[2023-06-18 16:48] LABS: Benzodiazepines Screen,Urine Negative ng/ml (<200); Cannabinoid Screen,Urine Positive ng/ml (<50)
[2023-06-18 16:50] LABS: Cocaine Screen,Urine Negative ng/ml (<300)
[2023-06-18 16:51] LABS: Methadone Screen,Urine Negative ng/ml (<300); Opiate Screen,Urine Negative ng/ml (<300)
[2023-06-18 16:52] LABS: Phencyclidine Screen,Urine Negative ng/ml (<25)
== END ==
PROVIDERS: PCP Emergency Medicine; Visit Provider Emergency Medicine
DX: M54.16 Radiculopathy, lumbar region (principal)
CPT/HCPCS: 80305

== ENCOUNTER 2023-06-18 20:04 | Emergency (ER) | payer MEDICAID, SELFPAY ==
--- NOTE | 2023-06-18 20:15 | XR_ITS ---
PROCEDURE INFORMATION: Exam: XR Right Forearm Exam date and time: 06/18/2023 8:42 PM Age: 53 years old Clinical indication: Injury or trauma; Other: Dog bite; Arm, lower; Right TECHNIQUE: Imaging protocol: Radiologic exam of the right forearm. Views: 2 views. COMPARISON: No relevant prior studies available. FINDINGS: Bones/joints: No acute fracture or dislocation. Soft tissues: No soft tissue gas or radiopaque foreign body. IMPRESSION: 1. No acute osseous abnormality. 2. No soft tissue gas or radiopaque foreign body.
[2023-06-18 20:34] VITALS: BP 144/77; PULSE 77; RESP 18; TEMP 36.8; O2SAT 98; BMI 27.9
--- NOTE | 2023-06-18 20:54 | HMH.EDGENADL ---
Discharge Plan Disposition Patient Disposition: Home, Self-Care Condition: Good Prescriptions Prescriptions: New amoxicillin-pot clavulanate 875-125 mg tablet 1 tab PO BID Qty: 20 0RF No Action trazodone 50 mg tablet 50 mg PO HS Qty: 30 2RF topiramate [Topamax] 25 mg tablet 25 mg PO DAILY Qty: 30 2RF levothyroxine 50 mcg capsule 50 mcg PO DAILY Qty: 30 2RF gabapentin 600 mg tablet 600 mg PO TID Qty: 90 1RF hydrocodone-acetaminophen 7.5-325 mg tablet 1 tab PO TID Qty: 90 0RF ondansetron 4 mg tablet,disintegrating 4 mg PO Q8H PRN (Reason: nausea and vomiting) 4 Days Qty: 12 0RF Referrals Follow up/Referrals: Provider,Referral, MD [Primary Care Provider] - See instructions Activity Restrictions/Add. Instructions Additional Instructions/Restrictions: You were evaluated in the emergency department today. Please take Tylenol and ibuprofen as needed for pain. Keep your wound clean and dry. Do not submerge under any water. 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 Return to the emergency department for any new or worsening symptoms. Follow-up with your primary care provider over the next 3 days for wound recheck. Clinical Impressions Clinical Impression: Dog bite of right forearm Qualifiers: Encounter type: initial encounter Qualified Code(s): S51.851A - Open bite of right forearm, initial encounter Instructions Patient Instructions: Animal Bites, DI for Animal Bites Discharge ED Provider: hSiloh Levy General Adult HPI General Chief complaint: Animal Bite Stated complaint: animal bite Time Seen by Provider: 06/18/23 20:13 Mode of Arrival: Ambulatory Source of Information: Patient Limitations: No Limitations Description of Symptoms (Recalled from ER Triage Doc. by RN): Patient states that she went to check on her neighbor and got bitten by his pitbull on her right forearm History of Present Illness HPI narrative: This patient is a 53-year-old female who denies significant past medical history presented to the emergency department for evaluation with concern for a wound to her right forearm. She reports that she was bitten by her neighbors dog, which is a pit bull. The dog is up-to-date on vaccinations, including rabies. She has an isolated wound to her medial right forearm but no other acutely concerning abnormalities. No numbness, tingling, or other concerns noted. She is unsure when her last tetanus shot was. She was well prior to this. Related Data Previous Rx's Medication Instructions Recorded ondansetron 4 mg disintegrating 4 mg PO Q8H PRN nausea and 05/31/23 tablet vomiting 4 days #12 tabs amoxicillin 875 mg-potassium 1 tab PO BID #20 tabs 06/18/23 clavulanate 125 mg tablet gabapentin 600 mg tablet 600 mg PO TID #90 tabs 06/18/23 hydrocodone 7.5 mg-acetaminophen 1 tab PO TID #90 tabs 06/18/23 325 mg tablet levothyroxine 50 mcg capsule 50 mcg PO DAILY #30 caps 06/18/23 topiramate 25 mg tablet (Topamax) 25 mg PO DAILY #30 tabs 06/18/23 trazodone 50 mg tablet 50 mg PO HS #30 tabs 06/18/23 Allergies Allergy/AdvReac Type Severity Reaction Status Date / Time No Known Allergies Allergy Verified 06/18/23 09:02 [facility] Disclaimer: The information contained in this section may have been updated after the patient was seen, as this information can be updated by other users. Social History Smoking Status: Current every day smoker alcohol intake: never substance use type: marijuana current occupational status: unemployed Travel in the last 8 weeks: None household members: family housing: house ROS Obtained: Yes All systems reviewed & no additional complaints except as documented Physical Exam General General appearance: alert and in no apparent distress Head Head exam: atraumatic and normocephalic Eye Eye exam: Prese
[2023-06-18 21:13] VITALS: BP 130/88; PULSE 74; RESP 18; TEMP 36.8
== END 2023-06-18 21:19 | disposition home or self-care (01) ==
PROVIDERS: Emergency Provider Emergency Medicine
DX: S51.851A Open bite of right forearm, initial encounter (principal); F17.210 Nicotine dependence, cigarettes, uncomplicated; W54.0XXA Bitten by dog, initial encounter
CPT/HCPCS: 73090; 90715; 96372; 99283

== ENCOUNTER → 2023-07-01 07:07 | Outpatient (CLI) | payer MEDICAID, SELFPAY ==
[2023-07-01 21:25] LABS: Amphetamine/Metha Screen,Urine Negative ng/ml (<1000)
[2023-07-01 21:26] LABS: Barbiturates Screen,Urine Negative ng/ml (<200); Benzodiazepines Screen,Urine Negative ng/ml (<200)
[2023-07-01 21:27] LABS: Cannabinoid Screen,Urine Positive ng/ml (<50)
[2023-07-01 21:28] LABS: Cocaine Screen,Urine Negative ng/ml (<300); Methadone Screen,Urine Negative ng/ml (<300)
[2023-07-01 21:29] LABS: Opiate Screen,Urine Negative ng/ml (<300)
[2023-07-01 21:30] LABS: Phencyclidine Screen,Urine Negative ng/ml (<25)
== END ==
PROVIDERS: PCP Emergency Medicine; Visit Provider Emergency Medicine
DX: M54.16 Radiculopathy, lumbar region (principal)
CPT/HCPCS: 80305

== ENCOUNTER → 2023-07-02 06:28 | Outpatient (CLI) | payer MEDICAID, SELFPAY | PROVIDERS: PCP Emergency Medicine; Visit Provider Emergency Medicine | DX: Z12.31 Encounter for screening mammogram for malignant neoplasm of breast (principal) ==

== ENCOUNTER → 2023-08-06 09:32 | Outpatient (CLI) | payer MEDICAID, SELFPAY ==
--- NOTE | 2023-08-06 09:47 | XR_ITS ---
FINAL REPORT CLINICAL HISTORY: rt foot pain FINDINGS: RIGHT FOOT 3 views of the right foot were obtained. There is no acute fracture or dislocation. Visualized joint spaces are normally aligned. Note is made of calcaneal spurring. Soft tissues are unremarkable. IMPRESSION: No acute bony abnormality. Reviewed, Interpreted and Dictated by Hannah Felton MD Transcribed by Jenny Quach Authenticated and [facility]
--- NOTE | 2023-08-06 09:47 | XR_ITS ---
FINAL REPORT CLINICAL HISTORY: rt ankle pain FINDINGS: RIGHT ANKLE 3 views of the right ankle were obtained. There is no acute fracture or dislocation. The mortise is intact. There is calcaneal spurring. Visualized joint spaces are normally aligned. Soft tissues are unremarkable. IMPRESSION: No acute bony abnormality. Reviewed, Interpreted and Dictated by Hannah Felton MD Transcribed by Jenny Quach Authenticated and . [facility]
--- NOTE | 2023-08-06 09:47 | XR_ITS ---
FINAL REPORT CLINICAL HISTORY: lt ankle pain FINDINGS: LEFT ANKLE Three views demonstrate no acute fracture or dislocation. There are severe degenerative changes with marked narrowing of the joint space along the lateral talar dome. There is an old fracture fragment along the medial malleolus as well as an old distal fibular fracture. Soft tissues are unremarkable. IMPRESSION: Severe degenerative changes likely related to old trauma. No acute bony abnormality. Reviewed, Interpreted and Dictated by Hannah Felton MD Transcribed by Jenny Quach Authenticated and [facility]
--- NOTE | 2023-08-06 09:47 | XR_ITS ---
FINAL REPORT CLINICAL HISTORY: left foot pain FINDINGS: LEFT FOOT Three views of the left foot demonstrate no acute fracture or dislocation. There is an old healed fifth metatarsal fracture. Visualized joint spaces are normally aligned. Soft tissues are unremarkable. IMPRESSION: No acute bony abnormality of the left foot. Reviewed, Interpreted and Dictated by Hannah Felton MD Transcribed by Jenny Quach Authenticated and [facility]
== END ==
PROVIDERS: PCP Physician Assistant; Visit Provider Podiatrist
DX: M25.571 Pain in right ankle and joints of right foot (principal); M25.572 Pain in left ankle and joints of left foot; M79.671 Pain in right foot; M79.672 Pain in left foot
CPT/HCPCS: 73610; 73630

== ENCOUNTER 2023-09-26 15:00 | Outpatient (RCR) | payer MEDICAID, SELFPAY ==
--- NOTE | 2023-09-19 12:23 | HMH.PTOPEV ---
PT Outpatient Evaluation Rehab PT Outpatient Evaluation Start: 09/19/23 11:55 Freq: Status: Active Protocol: Document 09/19/23 11:56 PATRICECARLITO (Rec: 09/19/23 12:23 PDESEROUX [id number]) E-signed By Percy Jordan, PT Outpatient Therapy Subjective History Subjective History Pt. is a 53 year old female who presents to [facility] Outpatient Physical Therapy Services this date(09/19/23) w/ c/o chronic and constant lumbar and BLE(L>R) P!, numbness, and weakness of insidious onset for the last 10 years that has progressively been getting worse. Pt. reports her last MRI of the lumbar spine 3 years ago indicated 3 slipped discs. Pt. reports her MD is wanting a more recent MRI of the lumbar spine for current complaint of pathology. Pt. c/ o BLE(L>R) numbness and tingling into the foot/digits. Pt. reports symptoms worsen w / standing and doing the dishes, but also ambulating 5 blocks. Pt. reports having some symptom relief w/ bending over and MHP. Pt. denies having injections for current complaint of P!. Pt. RTMD . Pt. reports changing her care to a new Doctor on (Dr. Solorzano). 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 PMH includes fx. tailbone 15 years ago, fractured LLE ankle, S/P LLE knee Chrondroplasty, S/P LUE CTS release, S/P LUE wrist surgical reconstruction, Hysterectomy, Cholecystectomy, Hyperthyroidism, Migraines. New diagnosis of cancer in past 12 No months? Chief Complaint Pain,Paresthesia,Weakness Symptom Type Ache,Throb,Sharp,Dull,Numbness ,Tingling,Shooting Symptoms Relieved By Rest/Positioning,Heat, Prescription Meds Symptoms Aggravated By Standing,Bending/Stooping, Walking,Lifting Prior Functional Limitations None Current Functional Limitations Lifting,Housework,Standing, Recreation Activity,Walking, Bending/Stooping Symptom Description Constant but Variable,Activity Dependent Level of pain today (0-10) 6 Pain scale - at its best (0-10) 2 Pain scale - at its worst (0-10) 10 Lumbopelvic Eval Posture Thoracic Spine Posture Standing Position Neutral Lumbar Spine Posture Standing Position Increased Lordosis Assistive device Assistive Devices None / NA Gait Observation General Gait Pattern Observation No Deviations/Normal Palapation tenderness bilateral lumbar spinal tenderness Yes: L1-S1 paraspinal tenderness Yes: B/L LSPS to lumbar spinal tenderness above buttock tenderness Yes: L-sided piriformis/glute max and med mms. Lumbar/Sacral Palpation Findings Tenderness Lumbar/Sacral Palpation Overall Comment grade 4 +TTP to TTP assessment above Accessory Movement L-spine Vertebrae Accessory Movements Central P/A [place],Right P/A that Elicit Symptoms [place],Left P/A [place] L2 bilateral L3 bilateral L4 bilateral L5 bilateral S1 bilateral Range of Motion Lumbar Spine Active Flexion Range of 66 Motion (degrees) Lumbar Spine Active Extension Range of 17 Motion (degrees) Left Lumbar Spine Lateral Flexion Active 13 Range of Motion (degrees) Right Lumbar Spine Lateral Flexion 21 Active Range of Motion (degrees) Lumbar Spine ROM Limitations Soft Tissue Tightness,Pain Manual Muscle Test Left Knee Extension Strength Grade 4- Good- Knee Flexion Strength Grade 4- Good- Hip Flexion Strength Grade 4- Good- Hip Abduction Strength Grade 4- Good- Hip Adduction Strength Grade 4- Good- Hip External Rotation Strength Grade 3+ Fair+ Hip Internal Rotation Strength Grade 4- Good- Hip Extension Strength Grade 4 Good Gluteus Pietro Strength Grade 4 Good Extensor Hallucis Longus Strength Grade 4 Good Ankle Dorsiflexion Strength Grade 3+ Fair+ Gastronemius/Soleus Strength Grade 4- Good- DTR Rt Patellar 0 Lt Patellar 0 Rt Gastroc/Soleus 0 Lt Gastroc/Soleus 0 Altered Sensation Left LE Dermatome Level L1,L2,L3,L4,L5,S1 Comment decreased light touch sensation in above patterns of LLE compared to RLE Special Tests Lumbar Spine Screen Positive Hip Piriformis Test Positive Left Sciatic Nerve Tension Test Positive Left Hip 90-90 Straight Leg Raise Test Positive Left Lumbar Long [place] Distraction Test/Manual Positive Traction Oswestry Index Section 1 Pain Intensity The pain comes and goes and is severe Section 2 Personal Care (Washing,Dresing) increase the pain and I find it necessary to change my way of doing it Section 3 Lifting Pain prevents me from lifting weights off the floor Section 4 Walking I cannot walk more than 1/4 mile without increasing pain Section 5 Sitting Pain prevents me from sitting for more than 1/2 hour Section 6 Standing I cannot stand more than 1/2 hour without increasing pain Section 7 Sleeping Because of my pain, my normal night's sleep is less than 6 hours sleep Section 8 Social Life Pain has restricted my social life to my home Section 9 Traveling Pain restricts me to short necessary journeys under 30 minutes Section 10 Changing Degreee of Pain My pain is rapidly getting worse Score and Risk Level Oswestry Sc 34 Oswestry Risk Level Severe Disability Outpatient Therapy Assessment Impairments Problems/Impairmments Palpation Tenderness,Impaired Range of Motion,Impaired Strength,Impaired Endurance, Impaired Walking,Impaired Standing,Impaired Driving, Impaired Lifting,Impaired Household Care,Impaired Bending,Impaired Recreational Activities,Subjective C/O Pain ,Impaired Self Care/Self Management Prognosis Rehab Potential Good Comment w/ HEP compliancy Clinical Impression Consistent with Diagnosis Yes Consistent with Lumbago w/ BLE(L>R) radic. Short Term Goals Number of Weeks 2 Decreased Palpation Tenderness Yes: grade 1-2 +TTP to TTP assessment above Decrease Subjective C/O Pain Yes: worse:01/16 Patient to be Ind w/ HEP Yes Statistical Modeler Goals Number of Weeks 4-6 Decreased Palpation Tenderness Yes: grade 1 +TTP to TTP assessment above Increase Range of Motion Yes: >85% norms grossly L- spine Increase Strength Yes: 4+ to 5/5 LLE MMT scores grossly Increase Ability to Walk Yes: Pt. will be able to ambulate a block w/o difficulty Increase Ability to Stand Yes: Pt. will be able to stand >10' to wash dishses w/o difficulty Increase Ability to Drive/Ride in Car Yes: Pt. will need to stop less while driving secondary to LBP! Improve Ability to Bend Yes Improve Oswestry Score Yes Decrease Subjective C/O Pain Yes: worse:-11/16 Improve Self Care/Self Management Yes Patient to be Ind w/ Advanced HEP Yes Outpatient Therapy Plan of Care Treatment Plan May Include Therapeutic Exercise Including Home Yes Exercise Program Manual Therapy Techniques Yes Neuromuscular Re-education Yes Therapeutic Activities to Return to Yes Previous Functional/Work Level ADL/Self Care Education Yes Mechanical Traction Yes Dry Needling Yes Thermal Modalities Yes Electrical Stimulation Yes Ultrasound/Phonophoresis Yes Iontophoresis Yes Vasopneumatic Compression Pump Yes Massage Yes Eval/Re-Eval Yes Frequency Times per week 2 Duration Number of Weeks 4-6 Addendums This patient is a candidate for social No or vocational rehab? Patient/Guardian verbally acknowledges Yes understanding of treatment program and consents to further treatment? Patient/Guardian verbally acknowledges Yes understanding of diagnosis, prognosis and goals for treatment? Eval Complexity PT Charges 32621 - Low Complexity Shoulder/Elbow Eval Shoulder Objective Measurements Elbow Objective Measurements PHYSICIAN CERTIFICATION: I certify the specified therapy services for Fatimah Antunez are required, authorized, and reviewed every 30 days.
== END 2023-09-26 16:00 | disposition home or self-care (01) ==
LOC: PT 15:00
PROVIDERS: PCP Physician Assistant; Visit Provider Nurse Practitioner Family
DX: M54.50 Low back pain, unspecified (principal); M54.9 Dorsalgia, unspecified
CPT/HCPCS: 97163

== ENCOUNTER 2023-12-27 10:28 | Outpatient (CLI) | payer MEDICAID, SELFPAY ==
[2023-12-27 18:48] LABS: Alanine Aminotransferase 13 U/L (12-78); Albumin Level 4.4 g/dl (3.5-5.0); Albumin/Globulin Ratio 1.2 (1.1-1.8); Alkaline Phosphatase 130 U/L (38-126); Anion Gap 10.8 mEq/L (5-15); Aspartate Amino Transferase 19 U/L (14-36); Bilirubin,Total 0.4 mg/dl (0.2-1.3); Blood Urea Nitrogen 12 mg/dl (7-17); Calcium 9.6 mg/dl (8.4-10.2); Carbon Dioxide 28 mmol/L (22.0-30.0); Chloride 107 mmol/L (98-107); Chol/HDL Ratio 4.1 (1-3.5); Cholesterol 193 mg/dl (140-200); Estimated Glomerular Filt Rate 65 ml/min (>60); GFR (African American) 79 ML/MIN (>60); Globulin 3.8 g/dL (1.3-3.2); Glucose 102 mg/dl (74-100); HDL Cholesterol 47 mg/dl (40-60); Potassium 3.8 mmoL/L (3.5-5.1); Sodium 142 mmol/L (136-145); Total Protein,Serum 8.2 g/dl (6.3-8.2); Triglycerides 117 mg/dl (30-150); VLDL Cholesterol 23 mg/dL (0-40)
[2023-12-27 19:06] LABS: 25-OH Vitamin D, Total 29.4 ng/mL (30-100)
[2023-12-27 19:20] LABS: Thyroid Stimulating Hormone 2.94 uIU/mL (0.465-4.68)
[2023-12-27 19:40] LABS: Vitamin B12 279 pg/mL (239-931)
[2023-12-27 20:48] LABS: Direct LDL Cholesterol 96.19 mg/dL (100-129)
== END 2023-12-27 23:59 | disposition home or self-care (01) ==
LOC: LAB.DROPOF 12-30 10:29
PROVIDERS: PCP Nurse Practitioner Family; Visit Provider Nurse Practitioner Family
DX: R10.32 Left lower quadrant pain (principal); E55.9 Vitamin D deficiency, unspecified; Z68.24 Body mass index [BMI] 24.0-24.9, adult
CPT/HCPCS: 80053; 80061; 82306; 82607; 84443

== ENCOUNTER 2024-03-11 11:25 | Outpatient (CLI) | payer MEDICAID, SELFPAY ==
[2024-03-11 12:13] LABS: Basophils # 0.1 K/mm3 (0-0.2); Basophils % 1.1 % (0.1-2.0); Eosinophils # 0.2 K/mm3 (0.0-0.4); Eosinophils % 3.5 % (0.1-12.0); Hematocrit 34.3 % (37.0-47.0); Hemoglobin 12.1 g/dL (12.2-16.2); Lymphocytes # 2.3 K/mm3 (0.7-4.5); Lymphocytes % 37.7 % (10-50); Mean Corpuscular HGB Conc 35.4 g/dL (31.8-35.4); Mean Corpuscular Hemoglobin 32.5 pg (27.0-31.2); Mean Corpuscular Volume 91.8 fl (81-99); Mean Platelet Volume 8.1 fl (7.4-10.4); Monocytes # 0.3 K/mm3 (0.1-1.0); Monocytes % 5.4 % (1.7-9.3); Neutrophils # 3.2 K/mm3 (1.8-7.8); Neutrophils % 52.3 % (37.0-80.0); Platelet Count 333 K/mm3 (142-424); Red Blood Count 3.73 M/mm3 (4.20-5.40); Red Cell Distribution Width 15.5 % (11.5-17.5); White Blood Count 6.2 K/mm3 (4.8-10.8)
[2024-03-11 12:26] LABS: Alanine Aminotransferase 15 U/L (12-78); Albumin/Globulin Ratio 1.2 (1.1-1.8); Alkaline Phosphatase 92 U/L (38-126); Aspartate Amino Transferase 19 U/L (14-36); Bilirubin,Indirect 0.2 mg/dL (0.0-0.9); Bilirubin,Total 0.2 mg/dl (0.2-1.3); Bilirubin,Unconjugated 0.3 mg/dL (0.0-1.1); Blood Urea Nitrogen 20 mg/dl (7-17); Calcium 9.1 mg/dl (8.4-10.2); Carbon Dioxide 29 mmol/L (22.0-30.0); Chloride 104 mmol/L (98-107); Estimated Glomerular Filt Rate 52 ml/min (>60); GFR (African American) 63 ML/MIN (>60); Globulin 3.3 g/dL (1.3-3.2); Glucose 79 mg/dl (74-100); Sodium 141 mmol/L (136-145); Total Protein,Serum 7.3 g/dl (6.3-8.2)
[2024-03-12 10:24] LABS: HIV (1&2) Antibody Rapid NON REACTIVE
[2024-03-13 18:10] LABS: Hepatitis Be Antibody Negative (Negative)
[2024-04-27 10:58] LABS: Hepatitis C Antibody REACTIVE
== END 2024-03-11 23:59 | disposition home or self-care (01) ==
PROVIDERS: PCP Family Medicine; Visit Provider Nurse Practitioner Psychiatric/Mental Health
DX: Z79.899 Other long term (current) drug therapy (principal)
CPT/HCPCS: 36415; 80053; 80076; 85025; 86707; 87380

== ENCOUNTER 2024-04-01 08:33 | Outpatient (CLI) | payer MEDICAID, SELFPAY ==
--- NOTE | 2024-04-01 08:36 | XR_ITS ---
FINAL REPORT CLINICAL HISTORY: Lt ankle pain..fx 25 plus years ago COMPARISON: None FINDINGS: LEFT ANKLE Three views demonstrate no acute fracture or dislocation. There are moderate degenerative changes, greatest laterally at the ankle mortise. Findings are probably posttraumatic. There is a probable chronic osteochondral injury of the lateral talar dome. Old healed fracture is noted of the distal fibula. The soft tissues are unremarkable. IMPRESSION: Chronic posttraumatic changes. Reviewed, Interpreted and Dictated by Hannah Felton MD Transcribed by Misti Terrazas Authenticated and [facility]
--- NOTE | 2024-04-01 08:36 | XR_ITS ---
FINAL REPORT CLINICAL HISTORY: Lt Foot Pain...fx 25 plus years ago COMPARISON: none FINDINGS: LEFT FOOT Three views of the left foot demonstrate no acute fracture or dislocation. There is an old healed fracture of the 5th metatarsal. The visualized joint spaces are normally aligned. The soft tissues are unremarkable. IMPRESSION: No acute bony abnormality. Reviewed, Interpreted and Dictated by Hannah Felton MD Transcribed by Misti Terrazas Authenticated and [facility]
== END 2024-04-01 23:59 | disposition home or self-care (01) ==
LOC: RAD 08:34
PROVIDERS: PCP Family Medicine; Visit Provider Physician Assistant
DX: M79.672 Pain in left foot (principal); M25.572 Pain in left ankle and joints of left foot
CPT/HCPCS: 73610; 73630

== ENCOUNTER 2024-05-05 15:23 | Outpatient (CLI) | payer MEDICAID, SELFPAY ==
[2024-05-05 21:11] LABS: Coronavirus 19, PCR Not Detected (NotDetected); Influenza A, PCR Not Detected (NotDetected); Influenza B, PCR Not Detected (NotDetected)
[2024-05-05 21:30] LABS: Strep Scrn Group A (Rapid) Negative (Negative)
[2024-05-05 22:09] LABS: Basophils # 0.1 K/mm3 (0-0.2); Eosinophils # 0.5 K/mm3 (0.0-0.4); Hematocrit 43.2 % (37.0-47.0); Hemoglobin 13.1 g/dL (12.2-16.2); Lymphocytes # 2.9 K/mm3 (0.7-4.5); Lymphocytes % 44.1 % (10-50); Mean Corpuscular HGB Conc 30.4 g/dL (31.8-35.4); Mean Corpuscular Volume 95.6 fl (81-99); Mean Platelet Volume 9.1 fl (7.4-10.4); Monocytes # 0.5 K/mm3 (0.1-1.0); Monocytes % 7.7 % (1.7-9.3); Neutrophils # 2.7 K/mm3 (1.8-7.8); Neutrophils % 40.3 % (37.0-80.0); Platelet Count 290 K/mm3 (142-424); Red Blood Count 4.52 M/mm3 (4.20-5.40); Red Cell Distribution Width 15.2 % (11.5-17.5); White Blood Count 6.7 K/mm3 (4.8-10.8)
== END 2024-05-05 23:59 | disposition home or self-care (01) ==
LOC: LAB.DROPOF 05-06 13:56
PROVIDERS: PCP Family Medicine; Visit Provider Family Medicine
DX: J06.9 Acute upper respiratory infection, unspecified (principal); J02.9 Acute pharyngitis, unspecified; N39.0 Urinary tract infection, site not specified; R30.0 Dysuria
CPT/HCPCS: 85025; 87086; 87430; 87636

== ENCOUNTER 2024-05-25 14:29 | Outpatient (CLI) | payer MEDICAID, SELFPAY ==
[2024-05-25 19:09] LABS: Alanine Aminotransferase 14 U/L (12-78); Albumin Level 3.9 g/dl (3.5-5.0); Albumin/Globulin Ratio 1.1 (1.1-1.8); Alkaline Phosphatase 85 U/L (38-126); Anion Gap 6.4 mEq/L (5-15); Aspartate Amino Transferase 22 U/L (14-36); Bilirubin,Total 0.5 mg/dl (0.2-1.3); Blood Urea Nitrogen 20 mg/dl (7-17); Carbon Dioxide 29 mmol/L (22.0-30.0); Chloride 111 mmol/L (98-107); Estimated Glomerular Filt Rate 58 ml/min (>60); GFR (African American) 70 ML/MIN (>60); Globulin 3.6 g/dL (1.3-3.2); Glucose 92 mg/dl (74-100); Potassium 4.4 mmoL/L (3.5-5.1); Sodium 142 mmol/L (136-145); Total Protein,Serum 7.5 g/dl (6.3-8.2)
[2024-05-25 19:37] LABS: Thyroid Stimulating Hormone 5.41 uIU/mL (0.465-4.68)
[2024-05-25 20:07] LABS: Hemoglobin A1C 5.3 % (4.0-6.0)
[2024-05-25 21:53] LABS: Basophils # 0.1 K/mm3 (0-0.2); Basophils % 1.4 % (0.1-2.0); Eosinophils # 0.4 K/mm3 (0.0-0.4); Eosinophils % 6.2 % (0.1-12.0); Hematocrit 42.5 % (37.0-47.0); Hemoglobin 12.8 g/dL (12.2-16.2); Lymphocytes # 2.1 K/mm3 (0.7-4.5); Lymphocytes % 31.8 % (10-50); Mean Corpuscular Hemoglobin 28.7 pg (27.0-31.2); Mean Corpuscular Volume 95.5 fl (81-99); Mean Platelet Volume 8.9 fl (7.4-10.4); Monocytes # 0.4 K/mm3 (0.1-1.0); Monocytes % 6.3 % (1.7-9.3); Neutrophils # 3.7 K/mm3 (1.8-7.8); Neutrophils % 54.4 % (37.0-80.0); Platelet Count 358 K/mm3 (142-424); Red Blood Count 4.45 M/mm3 (4.20-5.40); Red Cell Distribution Width 14.9 % (11.5-17.5); White Blood Count 6.7 K/mm3 (4.8-10.8)
== END 2024-05-25 23:59 | disposition home or self-care (01) ==
LOC: LAB.DROPOF 05-26 10:34
PROVIDERS: PCP Nurse Practitioner; Visit Provider Nurse Practitioner
DX: R42 Dizziness and giddiness (principal); E03.9 Hypothyroidism, unspecified; R11.2 Nausea with vomiting, unspecified
CPT/HCPCS: 80050; 80053; 83036; 84443; 85025

== ENCOUNTER 2024-06-22 13:02 | Outpatient (CLI) | payer MEDICAID, SELFPAY ==
--- NOTE | 2024-06-22 14:26 | XR_ITS ---
FINAL REPORT CLINICAL HISTORY: ankle pain COMPARISON: 04/01/2024 FINDINGS: LEFT TIBIA-FIBULA 2 views of the left tibia-fibula were obtained. There is moderate narrowing at the mortise. There is a healed fracture deformity of the distal fibula. There is some sclerosis of the distal tibial metaphysis. There is no soft tissue abnormality. IMPRESSION: Degenerative changes without acute bony abnormality. Reviewed, Interpreted and Dictated by Guille Alcocer MD Transcribed by Nazanin Villarreal Authenticated and [facility]
== END 2024-06-22 23:59 | disposition home or self-care (01) ==
LOC: RAD 13:03
PROVIDERS: PCP Family Medicine; Visit Provider Podiatrist
DX: M25.572 Pain in left ankle and joints of left foot (principal); M19.172 Post-traumatic osteoarthritis, left ankle and foot; Z87.81 Personal history of (healed) traumatic fracture
CPT/HCPCS: 73590

== ENCOUNTER 2024-07-25 19:57 | Emergency (ER) | payer MEDICAID, SELFPAY ==
[2024-07-25 19:58] VITALS: BP 141/76; PULSE 85; RESP 19; TEMP 36.7; O2SAT 98; BMI 28.3
--- NOTE | 2024-07-25 20:05 | XR_ITS ---
PROCEDURE INFORMATION: Exam: XR Left Shoulder Exam date and time: 07/25/2024 8:01 PM Age: 54 years old Clinical indication: Pain; Shoulder; Left; Additional info: Pain, limited rom TECHNIQUE: Imaging protocol: Radiologic exam of the left shoulder. Views: 2 or more views. COMPARISON: No relevant prior studies available. FINDINGS: Bones/joints: Normal. Soft tissues: Normal. IMPRESSION: No acute findings.
--- NOTE | 2024-07-25 20:06 | HMH.EDGENADL ---
Discharge Plan Disposition Patient Disposition: Home, Self-Care Condition: Good Prescriptions Prescriptions: New prednisone [prednisone] 20 mg tablet 20 mg PO BID Qty: 10 0RF No Action escitalopram oxalate [Lexapro] 20 mg tablet 20 mg PO DAILY Qty: 90 3RF hydroxyzine pamoate 25 mg capsule 25 mg PO TID PRN Patient Comments: TAKE 1 CAPSULE BY MOUTH 3 TIMES PER DAY NEEDED FOR ANXIETY OR SLEEP trazodone 100 mg tablet 200 mg PO HS Patient Comments: TAKE 2 TABLETS BY MOUTH AT NIGHT FOR SLEEP buspirone 10 mg tablet 20 mg PO TID Patient Comments: TAKE 2 TABLETS BY MOUTH 3 TIMES DAILY. cetirizine 10 mg tablet 10 mg PO DAILY Qty: 30 5RF cefdinir 300 mg capsule 300 mg PO BID Qty: 20 0RF fluticasone propionate 50 mcg/actuation spray,suspension 1 spray intranasal DAILY Qty: 16 2RF Rx Instructions: administer into each nostril meclizine 25 mg tablet 25 mg PO TID PRN (Reason: dizziness) Qty: 60 0RF methylprednisolone 4 mg tablets,dose pack 4 mg PO PER PKG DIR Qty: 21 0RF topiramate [Topamax] 25 mg tablet 25 mg PO DAILY Qty: 90 2RF albuterol sulfate 90 mcg/actuation HFA aerosol inhaler 2 puff inhalation QID PRN (Reason: shortness of breath or wheezing) Qty: 8.5 12RF Rx Instructions: please provide spacer buprenorphine-naloxone [Suboxone] 8-2 mg film 2 film buccal DAILY Rx Instructions: place 1.5 film on inside of (each) cheek levothyroxine 50 mcg capsule 50 mcg PO .COMPLEX Qty: 90 2RF Rx Instructions: 50 mcg orally take one tablet daily Saturday-Saturday and take 2 tablets every Saturday; Referrals Follow up/Referrals: Omer Holt MD [Primary Care Provider] - See instructions Activity Restrictions/Add. Instructions Additional Instructions/Restrictions: rest Ice with cold pack for 20 minutes remove may repeat for comfort every hour Ibuprofen every 6 hours as needed for pain or inflammation. Tylenol every 4 hours as needed Follow-up with primary care for more workup if needed Follow-up immediately if new or worsening symptoms or no noticeable improvement over the next 3-5 days. call ortho if no improvement Clinical Impressions Clinical Impression: Left shoulder pain Qualifiers: Chronicity: acute Qualified Code(s): M25.512 - Pain in left shoulder Instructions Patient Instructions: DI for Shoulder Pain Print Language Print Language: Lithuanian Discharge ED Provider: Michele Fierro General Adult HPI <Chrystal Nguyen ([facility]), [employer] - Last Filed: 07/25/24 20:26> General Chief complaint: Extremity Problem,Nontraumatic Stated complaint: L shoulder pain Time Seen by Provider: 07/25/24 20:03 Mode of Arrival: Ambulatory Source of Information: Patient Limitations: No Limitations History of Present Illness HPI narrative: 54-year-old female presents for left shoulder pain for 2 days. Patient states she went to bed her shoulder felt fine woke up with shoulder pain. Patient states no numbness or tingling but pain with raising arm. No injury noted Related Data Home Medications ?Medication ?Instructions ?Recorded ?Confirmed buprenorphine 8 mg-naloxone 2 mg 2 film buccal DAILY 05/25/24 06/22/24 sublingual film (Suboxone) buspirone 10 mg tablet 20 mg PO TID 05/25/24 06/22/24 hydroxyzine pamoate 25 mg capsule 25 mg PO TID PRN 05/25/24 06/22/24 trazodone 100 mg tablet 200 mg PO HS 05/25/24 06/22/24 Previous Rx's ?Medication ?Instructions ?Recorded topiramate 25 mg tablet (Topamax) 25 mg PO DAILY #90 tabs 12/27/23 escitalopram oxalate 20 mg tablet 20 mg PO DAILY #90 tabs 02/21/24 (Lexapro) albuterol sulfate 90 mcg/actuation 2 puff inhalation QID PRN 04/27/24 aerosol inhaler shortness of breath or wheezing #8.5 grams cefdinir 300 mg capsule 300 mg PO BID #20 caps 05/25/24 cetirizine 10 mg tablet 10 mg PO DAILY #30 tabs 05/25/24 fluticasone propionate 50 1 spray intranasal DAILY #16 grams 05/25/24 mcg/actuation nasal spray,suspension meclizine 25 mg tablet 25 mg PO TID PRN dizziness #60 tabs 05/25/24 levothyroxine 50 mcg capsule 50 mcg PO .COMPLEX #90 caps 05/26/24 methylprednisolone 4 mg tablets in 4 mg PO PER PKG DIR Pain, swelling 06/23/24 a dose pack #21 tabs prednisone 20 mg tablet 20 mg PO BID #10 tabs 07/25/24 Allergies Allergy/AdvReac Type Severity Reaction Status Date / Time No Known Allergies Allergy Verified 06/22/24 13:26 PFSH <[facility] [employer] - Last Filed: 07/25/24 20:26> PFSH Disclaimer: The information contained in this section may have been updated after the patient was seen, as this information can be updated by other users. Medical History , [employer]) Vertigo Dysuria Sore throat Cough URI, acute Anxiety disorder Hypothyroidism CTS (carpal tunnel syndrome) Lumbar radiculopathy Strain of lumbar region Gastroenteritis Neuropathic pain Surgical History , [employer]) Hx of knee surgery Hx of cholecystectomy Hx of hysterectomy Family History , [employer]) Diabetes Hyperlipidemia Heart attack Cancer Social History , [employer]) Smoking Status: Current every day smoker alcohol intake: never substance use type: marijuana current occupational status: unemployed Travel in the last 8 weeks: None household members: family housing: house Other Medical History Have you received the Flu Vaccine for this season: No Have you received the Pneumonia Vaccine: No <[facility], [employer] - Last Filed: 07/25/24 20:26> ROS Obtained: Yes Systems reviewed as appropriate & no additional complaints except as documented Musculoskeletal Musculoskeletal: Reports system reviewed and no additional complaints, except as documented, Reports as per HPI, Reports arthralgias and Reports limited range of motion Physical Exam <[facility], [employer] - Last Filed: 07/25/24 20:26> General General appearance: alert and in no apparent distress Respiratory Respiratory exam: Present normal lung sounds bilaterally Cardiovascular Cardiovascular exam: Present regular rate and normal rhythm Expanded Upper Extremity Exam Left: Shoulder exam: Present normal inspection, tenderness, tenderness over AC joint and other Neurological Exam Neurological exam: Present alert and oriented X3 Skin Skin exam: Present warm and intact Medical Decision Making <Chrystal Gracefabianaquiles ([facility]), [employer] - Last Filed: 07/25/24 20:26> Medical Records Medical records reviewed: Yes I reviewed the patient's medical records. Screening: Per USPSTF and CDC recommendations, given the prevalence of disease in our region, it is our hospital?s policy to screen for HIV and viral Hepatitis for all patients aged 18 and over and those with ongoing risk factors. Coleman Inquiry Pt receiving controlled substance: No Coleman was queried for this patient: No Vital Signs: 07/25/24 19:58 07/25/24 20:37 Temperature 98.0 F 98.0 F Temperature Source Oral Oral Pulse Rate 78 Pulse Rate [Right] 85 Respiratory Rate 19 20 Blood Pressure 138/80 Blood Pressure [Right Arm] 141/76 H Blood Pressure Mean [Right Arm] 97 Blood Pressure Source Automatic Cuff Blood Pressure Source [Right Arm] Automatic Cuff 02 Sat by Pulse Oximetry 98 Oxygen Delivery Method Room Air Room Air Orders (Tests/Meds): ED MEDICATIONS Discontinued Medications Generic Name Dose Route Start Last Admin Trade Name Freq PRN Reason Stop Dose Admin Dexamethasone Sodium Phosphate 4 mg 07/25/24 20:18 07/25/24 20:20 Dexamethasone 4mg/Ml 1ml Vial IM 07/25/24 20:19 4 mg ONCE ONE Administration ORDERS Category Date Time Status Shoulder XR left minimum 2 views [XR shoulder LT min 2V Exams 07/25/24 20:05 Completed ] Stat Radiology Data #1: Image(s): Shoulder Image Reviewed: Yes I have reviewed radiologist's interpretation Medical Decision Narrative: In summary patient is a 54-year-old female who presents to the emergency department for evaluation of left shoulder pain. Patient is hemodynamically stable upon arrival, afebrile. Tenderness with palpation and limited range of motion. Differential diagnosis includes rotator cuff, bursitis,. Initial workup will be conducted with x-ray was negative. Initial workup reviewed by me, x-ray was negative. Given this patient was appropriate for discharge at this time will discharge home with with prednisone prescription and follow-up with Ortho. I informally interpreted patient's shoulder [id number] Patient does not want lidocaine patches <Michele Fierro MD - Last Filed: 07/25/24 22:08> Vital Signs: 07/25/24 19:58 07/25/24 20:37 Temperature 98.0 F 98.0 F Temperature Source Oral Oral Pulse Rate 78 Pulse Rate [Right] 85 Respiratory Rate 19 20 Blood Pressure 138/80 Blood Pressure [Right Arm] 141/76 H Blood Pressure Mean [Right Arm] 97 Blood Pressure Source Automatic Cuff Blood Pressure Source [Right Arm] Automatic Cuff 02 Sat by Pulse Oximetry 98 Oxygen Delivery Method Room Air Room Air Orders (Tests/Meds): ED MEDICATIONS Discontinued Medications Generic Name Dose Route Start Last Admin Trade Name Janneth PRN Reason Stop Dose Admin Dexamethasone Sodium Phosphate 4 mg 07/25/24 20:18 07/25/24 20:20 Dexamethasone 4mg/Ml 1ml Vial IM 07/25/24 20:19 4 mg ONCE ONE Administration ORDERS Category Date Time Status Shoulder XR left minimum 2 views [XR shoulder LT min 2V Exams 07/25/24 20:05 Completed ] Stat Medical Decision Narrative: In summary patient is a 54-year-old female who presents to the emergency department for evaluation of left shoulder pain. Patient is hemodynamically stable upon arrival, afebrile. Tenderness with palpation and limited range of motion. Differential diagnosis includes rotator cuff, bursitis,. Initial workup will be conducted with x-ray was negative. Initial workup reviewed by me, x-ray was negative. Given this patient was appropriate for discharge at this time will discharge home with with prednisone prescription and follow-up with Ortho. I informally interpreted patient's shoulder [id number] Patient does not want lidocaine patches I was consulted by the SHONDA, and we discussed the complexity of the problems being addressed. I approved the treatment and management plan for this patient's care in the Emergency Department, thus performing a substantive portion of the medical decision making. Michele Fierro MD Critical Care <Chrystal Nguyen ([facility]), [employer] - Last Filed: 07/25/24 20:26> Critical Care Time Critical Care Time: No
[2024-07-25] MEDS: DEXAMETHASONE 4MG/ML 1ML VIAL 4 MG IM (20:20)
[2024-07-25 20:37] VITALS: BP 138/80; PULSE 78; RESP 20; TEMP 36.7; O2SAT 98
== END 2024-07-25 20:37 | disposition home or self-care (01) ==
PROVIDERS: Emergency Provider Emergency Medicine; PCP Family Medicine
DX: M25.512 Pain in left shoulder (principal)
CPT/HCPCS: 73030; 96372; 99283; J1100

== ENCOUNTER 2025-06-14 08:54 | Outpatient (RCR) | payer MEDICAID, SELFPAY ==
--- NOTE | 2025-06-14 09:52 | HMH.PTOPEV ---
PT Evaluation Rehab PT Outpatient Evaluation Start: 06/14/25 08:56 Freq: Status: Active Protocol: Document 06/14/25 08:56 ISHAAN (Rec: 06/14/25 09:52 ISHAAN [id number]) E-signed By Wisam Mathew, PT Outpatient Therapy Subjective History Subjective History Pt is a 55 yof who is referred to [facility] outpatient PT with complaints of lower back pain and R hip pain. Pt reports that she has dealt with back pain for approximately 10-12 years. Pt reports that the pain in her hip is a newer onset of pain. Pt reports no significant episode preceding her onset of pain. Pt reports that she cannot stand for longer than 10-15 minutes before she is required to sit down due to her pain. Pt reports that she cannot walk more than 1 block before her pain begins to intensify. Pt reports that she also has L ankle pain due to a fracture in 1997. Pt reports occasional numbness and tingling into both of her feet. PMH: COPD, pancreatitis, Vertigo New diagnosis of No cancer in past 12 months? Chief Complaint Pain,Stiff,Weakness Symptom Type Ache,Throb Symptoms Relieved By Nothing Symptoms Aggravated Standing,Walking,Lifting By Prior Functional None Limitations Current Functional Lifting,Housework,Standing,Squatting,Walking,Stairs Limitations Symptom Description Constant but Variable,Activity Dependent Level of pain today 6 (0-10) Pain scale - at its 2 best (0-10) Pain scale - at its 8 worst (0-10) Lumbopelvic Eval Posture Thoracic Spine Neutral Posture Standing Position Lumbar Spine Posture Flexed Standing Position Assistive device Assistive Devices None / NA Gait Observation General Gait Pattern No Deviations/Normal Observation Palapation tenderness bilateral lumbar spinal Yes: TTP 3/4 to L3-L4 tenderness paraspinal Yes: Palpable TrP to Lumbar Paraspinals R L3-L4 tenderness Lumbar/Sacral Tenderness,Trigger Point,Muscle Guarding Palpation Findings Accessory Movement L-spine Vertebrae Central P/A [place],Right P/A [place] Accessory Movements that Elicit Symptoms L2 bilateral L3 bilateral L4 bilateral Range of Motion Lumbar Spine Active 50 Flexion Range of Motion (degrees) Lumbar Spine Active 5 Extension Range of Motion (degrees) Left Lumbar Spine 20 Lateral Flexion Active Range of Motion (degrees) Right Lumbar Spine 20 Lateral Flexion Active Range of Motion (degrees) Lumbar Spine ROM Soft Tissue Tightness,Pain Limitations Manual Muscle Test Right Knee Extension 4+ Good+ Strength Grade Knee Flexion 4+ Good+ Strength Grade Hip Flexion Strength 3 Fair Grade Hip Abduction 2+ Poor+ Strength Grade Hip Adduction 3 Fair Strength Grade Hip Extension 3 Fair Strength Grade DTR Rt Patellar 2+ Lt Patellar 2+ Rt Gastroc/Soleus 1+ Lt Gastroc/Soleus 1+ Altered Sensation Bilateral Comment Intact to LT symmetrically. Special Tests Lumbar Spine Screen Positive Hip Scouring ( Positive Right Quadrant) Test Hip Percy (LUZMA) Positive Right Test Sacroiliac Joint Negative Right Compression Test Sacroiliac Joint Negative Right Distraction Test Lower Extremity Functional Index Activities Today, do you or would you have any difficulty at all with: a.Any of your usual Quite a bit of difficulty work, housework or school activities b. Your usual Quite a bit of difficulty hobbies, recreational or sporting activities c. Getting into or Moderate difficulty out of the bath d. Walking between Moderate difficulty rooms e. Putting on your Moderate difficulty shoes or socks f. Squatting Quite a bit of difficulty g. Lifting an object Quite a bit of difficulty , like a bag of groceries from the floor h. Performing light Moderate difficulty activities around your home i. Performing heavy Quite a bit of difficulty activities around your home j. Getting into or Moderate difficulty out of a car k. Walking 2 blocks Quite a bit of difficulty l. Walking a mile Quite a bit of difficulty m. Going up or down Moderate difficulty 10 stairs (about 1 flight of stairs) n. Standing for 1 Quite a bit of difficulty hour o. Sitting for 1 Quite a bit of difficulty hour p. Running on even Quite a bit of difficulty ground q. Running on uneven Quite a bit of difficulty ground r. Making sharp Quite a bit of difficulty turns while running fast s. Hopping Quite a bit of difficulty t. Rolling over in Moderate difficulty bed LEFI Score Lower Extremity 27 Functional Index Score Miscellaneous Dx PT Eval Objective Objective TTP to R Greater Trochanter 3/4 Outpatient Therapy Assessment Impairments Problems/ Palpation Tenderness,Impaired Range of Motion,Impaired Impairmments Strength,Impaired Walking,Impaired Standing,Impaired Lifting,Impaired Household Care,Impaired Stair Climbing ,Impaired Squatting,Subjective C/O Pain Prognosis Rehab Potential Good Comment w HEP compliance Clinical Impression Consistent with Yes Diagnosis Additional details: Low back pain with movement coordination impairments Trochanteric Bursitis PT Patient Goals PT Patient Goals PT Short Term 3 weeks: Patient Goals 1. Patient will report a 48 hour average pain of 5/10 on the numeric pain rating scale to demonstrate improvement in quality of life and increased functional capacity. 2. Patient will improve R hip abductor and hip extensor strength upon manual muscle testing to 3+/5 facilitate increased spinal stabilization and improved functional capabilities. 3. Patient will demonstrate a reduction in trigger point sensitivity to Grade 2 with manual palpation to improve comfort during activity and soft tissue mobility. 4. Patient will improve lumbar ROM by 10 degrees in all planes to demonstrate improved movement patterns with functional mobility and ADLs. 5. Patient will be able to stand for 15 minutes at one time to demonstrate independence with principal clerk, such as washing her dishes. 6. Pt will demonstrate HEP compliance by completing prescribed HEP 4-5x/week. 7. Pt will improve LEFS score to 36 to demonstrated improved functional mobility, overall improvement and improved quality of life. PT Emergency Care Attendant Patient 6 weeks: Goals 1. Patient will report a 48 hour average pain of 2-3/10 on the numeric pain rating scale to demonstrate improvement in quality of life and increased functional capacity. 2. Patient will improve R hip abductor and hip extensor strength upon manual muscle testing to 4/5 facilitate increased spinal stabilization and improved functional capabilities. 3. Patient will demonstrate a reduction in trigger point sensitivity to Grade 0-1 with manual palpation to improve comfort during activity and soft tissue mobility. 4. Patient will improve lumbar ROM by 15-20 degrees in all planes to demonstrate improved movement patterns with functional mobility and ADLs. 5. Patient will be able to stand/walk for 1 hour at one time to demonstrate improved community ambulation for activities, such as grocery shopping and other activities. 6. Pt will be able to lift a 10# weight from floor with proper lifting mechanics and less than 2/10 pain to demonstrate the ability to lift items, such as grocery bags, milk jugs, laundry basket, etc. 7. Pt will improve LEFS score to 45 to demonstrate improved functional mobility, overall improvement and improved quality of life. Outpatient Therapy Plan of Care Treatment Plan May Include Therapeutic Exercise Yes Including Home Exercise Program Manual Therapy Yes Techniques Neuromuscular Re- Yes education Therapeutic Yes Activities to Return to Previous Functional/Work Level Gait Training Yes ADL/Self Care Yes Education Thermal Modalities Yes Electrical Yes Stimulation Iontophoresis Yes Massage Yes Manual Lymphatic Yes Drainage Eval/Re-Eval Yes Frequency Times per week 2 Duration Number of Weeks 8 Addendums This patient is a No candidate for social or vocational rehab ? Patient/Guardian Yes verbally acknowledges understanding of treatment program and consents to further treatment? Patient/Guardian Yes verbally acknowledges understanding of diagnosis, prognosis and goals for treatment? Eval Complexity PT Charges 17669 - High Complexity Shoulder/Elbow Eval Shoulder Objective Measurements Elbow Objective Measurements PHYSICIAN CERTIFICATION: I certify the specified therapy services for Fatimah Young are required, authorized, and reviewed every 30 days.
== END 2025-06-14 23:59 | disposition home or self-care (01) ==
LOC: PT 08:54
PROVIDERS: Visit Provider Family Medicine
DX: M54.50 Low back pain, unspecified (principal); M25.551 Pain in right hip
CPT/HCPCS: 97163

== ENCOUNTER 2025-06-14 10:01 | Outpatient (CLI) | payer MEDICAID, SELFPAY ==
--- OUTSIDE RECORDS SUMMARY | 2025-02-17 09:58 | XMS_ITS | Continuity of Care Document ---
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 Name Role Phone Milton MIKE, Kristen Unavailable Unavailable Allergies, Adverse Reactions, Alerts Substance Reaction Status Criticality No Known Allergies Active No Inform ation Medications Medication Instructions Dosage Effective Dates (start - stop) Status Comments Colace 100 mg capsule take 1 capsule by oral route every day at bedtime as needed 100 MG - Active Suboxone 8 mg-[address] 1 film by sublingual route every day allow to dissolve slowly in mouth without chewing or swallowing 1 film - Active Zoloft 25 mg tablet take 1 tablet by ora l route every day 25 MG - Active levothyroxine 25 mcg capsule take 1 capsule by oral route every day 25 MCG - Active trazodone 300 mg tablet take 1 tablet by oral route 2 times every day with food 300 MG - Active Topamax 50 mg tablet take 1 tablet by or al route 2 times every day 50 MG - Active acetaminophen ER 650 mg tablet,extended release take 2 tablet by oral route every 8 hours as needed swallowing whole with water. Do not break, crush, dissolve and/or chew. 1300 MG - Active Narcan 4 mg/actuation nasal spray spray 0.1 milliliter by intranasal route in 1 nostril may repeat dose every 2-3 minutes as needed alternating nostrils with each dose 4 MG - Active bupropion HCl XL 300 mg 24 hr tablet, extended release take 1 tablet by oral route 1 times every day - Active Vraylar 1.5 mg capsule take 1 capsule by oral route every day 1.5 MG - Active hydroxyzine pamoate 25 mg capsule take 1 capsule by oral route 3 times every day prn - Active quetiapine 100 mg tablet take 1 tablet by oral route every night - Active buspirone 10 mg tablet take 2 tablet by oral route 3 times every day - Active Advance Directives Directive Yes / No Effective Date File Name No Information Encounters Encounter Description Practice Location Reason(s) For Visit Diagnoses Date Provider [facility], [address] [place] [address], [facility], tel:[phone] [facility] No Information 5 Milton Rosalvaalisha. [address] [place] [address], [facility], . tel:[phone] [facility], [address] [place] [address], [facility], tel:[phone] [facility] Opioid dependence, uncomplicated 5 Tonio Khan. . [facility], [address] [place] [address], [facility], [place] tel:[phone] [facility] ASHLE[facility] ARNULFO Opioid dependence, uncomplicated 5 Tonio Khna. . [facility], [address] [place] [address], [facility], [place] tel:[phone] [facility] DUNBAR (chief complaint) Opioid dependence, uncomplicatedConstipation 5 Lukas Chowdhury. [address] [place], [address], [place]. tel:[phone] [facility], [address] [place] [address], [facility], [place] tel:[phone] [facility] DUNBAR (chief complaint) Opioid dependence, uncomplicatedHerpes simplex infectionDepression, unspecified 5 Lukas Chowdhury. [address] [facility], [place], [address], [place]. tel:[phone] [facility], [address] [place] [address], [facility], [place] tel:[phone] [facility] establish care (chief complaint) Encounter for screening for malignant neoplasm of cervixDepression, unspecifiedGeneralized Anxiety DisorderOpioid dependence, uncomplicatedEncounter for screening for malignant neoplasm of colonEncntr screen mammogram for malignant neoplasm of breastHypothyroidismMigrai ne 5 Milton Peterson. [address] [place] [address], [facility], [place]. tel:[phone] [facility], [address] [place] [address], [facility], [place] tel:[phone] [facility] Opioid dependence, uncomplicatedOther stimulant dependence, uncomplicatedCannabis dependence, uncomplicated 5 Marija Thompson. . [facility], [address] [place] [address], [facility], tel:[phone] [facility] MAT (chief complaint) Extreme povertyUnderachievement in schoolUnemployment, unspecifiedStress, not elsewhere classifiedEncounter for screening for depressionOpioid dependence, uncomplicatedGeneralized Anxiety DisorderDepression, unspecified 5 Lukas Chowdhury. [address] [place], [address], [place]. [phone] [facility], [address] [place] [address], [facility], [place] tel:[phone] [facility] No Information 5 Lukas Chowdhury. [address] [place], [address], [place]. tel:[phone] Family History Family Member Type Diagnosis Age At Onset Son Problem x 2 Brother Problem Alive and well Son Problem Alive and well Mother Problem Cancer, brain Father Problem dementia,and Parkinsons Mother Problem (finding) Brother Problem COPD Daughter Problem x 3 Daughter Problem Alive and well Immunizations Vaccine Date Status Comments Influenza virus vaccine, trivalent (IIV3), split virus, preservative free, 0.5 mL dosage, for intramuscular use administered Source: Ne w Immunization Record Tdap, Adsorbed administered Source: Other Registry Influenza Inj administered Source: Other Registry Payers Payer name Insurance type Covered constitution party ID Authoriza tisven(s) [facility]- Medicaid [employer] [id number] [facility]- Medicaid [employer] [place] Payer [id number] [facility]- Medicaid [employer] [place] [id number] [facility]- Medicaid [employer] Payer [id number] [facility]- Covered Under [facility] [id number] Social History Type Description Quantity Date Captured Comments Alcohol Use Details Unknown Caffeine Use Details Unknown Tobacco Use Status Smoking Status No Information Sex Female Sexual Orientation Straight or heterosexual Sep Gender Identity Female Chief Complaint And Reason For Visit No Information Plan Of Treatment Date Type Action Status Goal Tobacco screening. Due on due Goal Drug Abuse Scree adonis Test (DAST-10). Due on due Goal Pap/HPV testing. Due on due Goal Generalized Anxi ety Disorder - 7 (JOHN-7). Due on due Goal CMP. Due on due Goal Tobacco Use Cess ation Counseling. Due on due Goal HIV screen. Due on due Goal Depression screening. Due on due Goal Hepatitis C Screening. Due o n due Goal Unhealthy drug use screening due Goal CBC. Due on due Goal Diabetes screening. Due on due Goal HPV. Due on due Goal PAP. Due on due Goal Obtain Height, W eight, and BMI. Due on due Goal Follow up Plan f or abnormal BMI (Less than 18.5, greater than 25). Due on due Goal HPV testing. Due on due Goal Vitamin D. Due on due Goal Tobacco Use Screening. Due o n due Goal TSH. Due on due Goal Influenza vaccine. Due on due Goal Vitamin B12. Due on due Goal Lipid panel. Due on due Goal Unhealthy drug use screening due Goal Influenza vaccine. Due on due Goal HPV. Due on due Goal Pap/HPV testing. Due on due Goal FIT-DNA. Due on due Goal FIT. Due on due Goal Depression screening. Due on due Goal CMP. Due on due Goal CT-Colonography. Due on due Goal CBC. Due on due Goal Generalized Anxi ety Disorder - 7 (JOHN-7). Due on due Goal Diabetes screening. Due on due Goal FOBT. Due on due Goal Follow up Plan f or abnormal BMI (Less than 18.5, greater than 25). Due on due Goal HPV testing. Due on due Goal TSH. Due on due Goal HIV screen. Due on due Goal Mammogram. Due on due Goal PAP. Due on due Goal Tobacco Use Cess ation Counseling. Due on due Goal Hepatitis C Screening. Due o n due Goal Vitamin B12. Due on due Goal Vitamin D. Due on due Goal Colonoscopy. Due on due Goal Obtain Height, W eight, and BMI. Due on due Goal Tobacco Use Screening. Due o n due Goal Drug Abuse Scree adonis Test (DAST-10). Due on due Goal Lipid panel. Due on due Goal Vitamin D. Due on due Goal CBC. Due on due Goal Drug Abuse Scree adonis Test (DAST-10). Due on due Goal Obtain Height, W eight, and BMI. Due on due Goal CT-Colonography. Due on due Goal FIT. Due on due Goal Mammogram. Due on due Goal Influenza vaccine. Due on due Goal Tobacco Use Screening. Due o n due Goal Diabetes screening. Due on F due Goal Tobacco Use Cess ation Counseling. Due on due Goal FIT-DNA. Due on due Goal Vitamin B12. Due on due Goal Unhealthy drug use screening due Goal FOBT. Due on due Goal Generalized Anxi ety Disorder - 7 (JOHN-7). Due on due Goal TSH. Due on due Goal HPV testing. Due on due Goal PAP. Due on due Goal HPV. Due on due Goal Pap/HPV testing. Due on due Goal CMP. Due on due Goal Lipid panel. Due on due Goal HIV screen. Due on due Goal Colonoscopy. Due on due Goal Depression screening. Due on due Goal Follow up Plan f or abnormal BMI (Less than 18.5, greater than 25). Due on due Goal Hepatitis C Screening. Due o n due Goal Vitamin B12. Due on due Goal Tobacco Use Cess ation Counseling. Due on due Goal FOBT. Due on due Goal Influenza vaccine. Due on due Goal Mammogram. Due on due Goal HPV testing. Due on due Goal Depression screening. Due on due Goal Colonoscopy. Due on due Goal FIT-DNA. Due on due Goal Diabetes screening. Due on due Goal Follow up Plan f or abnormal BMI (Less than 18.5, greater than 25). Due on due Goal Lipid panel. Due on due Goal Tobacco Use Screening. Due o n due Goal CMP. Due on due Goal Obtain Height, W eight, and BMI. Due on due Goal Pap/HPV testing. Due on due Goal CBC. Due on due Goal Drug Abuse Scree adonis Test (DAST-10). Due on due Goal Unhealthy drug use screening due Goal CT-Colonography. Due on due Goal PAP. Due on due Goal HPV. Due on due Goal Vitamin D. Due on due Goal FIT. Due on due Goal HIV screen. Due on 25 due Goal TSH. Due on due Goal Generalized Anxi ety Disorder - 7 (JOHN-7). Due on due Goal Hepatitis C Screening. Due o n due Goal Drug Abuse Scree adonis Test (DAST-10). Due on due Goal CBC. Due on due Goal CMP. Due on due Goal TSH. Due on due Goal FOBT. Due on due Goal Diabetes screening. Due on due Goal Lipid panel. Due on due Goal Tobacco Use Cess ation Counseling. Due on due Goal Hepatitis C Screening. Due o n due Goal CT-Colonography. Due on due Goal Colonoscopy. Due on due Goal PAP. Due on due Goal Tobacco Use Screening. Due o n due Goal Unhealthy drug use screening due Goal Mammogram. Due on due Goal HPV. Due on due Goal Obtain Height, W eight, and BMI. Due on due Goal HPV testing. Due on due Goal Pap/HPV testing. Due on due Goal FIT. Due on due Goal HIV screen. Due on due Goal Influenza vaccine. Due on due Goal Depression screening. Due on due Goal Follow up Plan f or abnormal BMI (Less than 18.5, greater than 25). Due on due Goal Vitamin D. Due on due Goal Generalized Anxi ety Disorder - 7 (JOHN-7). Due on due Goal FIT-DNA. Due on due Goal Vitamin B12. Due on due Goal CMP. Due on due Goal HPV testing. Due on due Goal Pap/HPV testing. Due on due Goal HIV screen. Due on due Goal Hepatitis C Screening. Due o n due Goal Tobacco Use Screening. Due o n due Goal HPV. Due on due Goal CBC. Due on due Goal Influenza vaccine. Due on due Goal Generalized Anxi ety Disorder - 7 (JOHN-7). Due on due Goal Obtain Height, W eight, and BMI. Due on due Goal CT-Colonography. Due on due Goal Diabetes screening. Due on due Goal Mammogram. Due on due Goal Unhealthy drug use screening due Goal FOBT. Due on due Goal Colonoscopy. Due on due Goal Tobacco Use Cess ation Counseling. Due on due Goal FIT. Due on due Goal Vitamin B12. Due on due Goal PAP. Due on due Goal FIT-DNA. Due on due Goal Lipid panel. Due on due Goal TSH. Due on due Goal Depression screening. Due on due Goal Vitamin D. Due on due Goal Drug Abuse Scree adonis Test (DAST-10). Due on due Goal Follow up Plan f or abnormal BMI (Less than 18.5, greater than 25). Due on due Goal FIT-DNA. Due on due Goal HPV. Due on due Goal Follow up Plan f or abnormal BMI (Less than 18.5, greater than 25). Due on due Goal CT-Colonography. Due on due Goal Vitamin D. Due on due Goal FIT. Due on due Goal CMP. Due on due Goal Pap/HPV testing. Due on due Goal Obtain Height, W eight, and BMI. Due on due Goal Unhealthy drug use screening due Goal Influenza vaccine. Due on due Goal Drug Abuse Scree adonis Test (DAST-10). Due on due Goal Diabetes screening. Due on due Goal Lipid panel. Due on due Goal Tobacco Use Screening. Due o n due Goal TSH. Due on due Goal HPV testing. Due on due Goal Colonoscopy. Due on due Goal FOBT. Due on due Goal HIV screen. Due on due Goal Generalized Anxi ety Disorder - 7 (JOHN-7). Due on due Goal PAP. Due on due Goal CBC. Due on due Goal Tobacco Use Cess ation Counseling. Due on due Goal Hepatitis C Screening. Due o n due Goal Depression screening. Due on due Goal Vitamin B12. Due on due Goal FIT-DNA. Due on due Goal HPV. Due on due Goal Follow up Plan f or abnormal BMI (Less than 18.5, greater than 25). Due on due Goal CT-Colonography. Due on due Goal Vitamin D. Due on due Goal FIT. Due on due Goal CMP. Due on due Goal Pap/HPV testing. Due on due Goal Obtain Height, W eight, and BMI. Due on due Goal Unhealthy drug u se screening. Due on due Goal Influenza vaccine. Due on due Goal Drug Abuse Scree adonis Test (DAST-10). Due on due Goal Diabetes screening. Due on due Goal Lipid panel. Due on due Goal Tobacco Use Screening. Due o n due Goal TSH. Due on due Goal HPV testing. Due on due Goal Colonoscopy. Due on due Goal FOBT. Due on due Goal Mammogram. Due on due Goal HIV screen. Due on due Goal Generalized Anxi ety Disorder - 7 (JOHN-7). Due on due Goal PAP. Due on due Goal CBC. Due on due Goal Tobacco Use Cess ation Counseling. Due on due Goal Hepatitis C Screening. Due o n due Goal Depression screening. Due on due Goal Vitamin B12. Due on due Referral Ordered: Referrals: Gynecology. Evaluate and treat Appointment date/timeframe: 1 Month ordered Referral Ordered: [facility] MAMMO BI INCL CAD Appointment date/timeframe: 01/19/2025 ordered Referral Referred To: [facility] Ordered: Referrals: Gastroenterology. [facility]. Location: [place]. Evaluate and treat Appointment date/timeframe: 02/15/2025 ordered Referral Referred To: [facility] Ordered: Referrals: Gynecology. [facility]. Location: [place]. Evaluate and treat Appointment date/timeframe: 12/15/2024 ordered Future Order: Lab Order Folate ( Folic Acid), Serum ([id number]), Sent on: Sent Future Order: Lab Order Hemoglob in A1c ([id number]), Sent on: Sent Future Order: Lab Order Lipid Pa tony ([id number]), Sent on: Sent Future Order: Lab Order TSH ([id number]), Sen t on: Sent Future Order: Lab Order Vitamin B12 ([id number]), Sent on: Sent History Of Present Illness Encounter Date Complaint History Of Prese nt Illness MAT The client state s the symptoms are chronic. Patient has verified being in the [facility] and has given verbal consent to be treated via telehealth consultation. Today's visit is being completed via; telehealth. Patient provided full consent to use this technology. Patient was advised of the limitations of a video visit via telehealth. Provider completed this visit within her office. Patient's location during this visit-[facility], [place], [place]. Fatimah reports she got moved back to [facility] this week. She reports some constipation and she started the Zoloft that this provider ordered last week, today. Client denies relapses and cravings at this time. Client appeared alert and attentive. Client was cooperative and participated well during session. Provider provided support and encouragement. Reports doing well and stable with current medication regimen. Patient denies any misuse of buprenorphine, selling or involved to any criminal activities and no evidence of diversion. Client denies any recent mental health issues. Denies any suicidal or homicidal thoughts. Client does not wish to reduce medication at this time due to fear of relapse. Client denies any recent hospitalizations or illness.Patient denies signs of liver failure, including jaundice, diffuse abdominal pain or pain focused in the upper right quadrant, abdominal swelling, excessive vomiting, or disorientation or confusion. If patient develops these symptoms patient agrees to report to the nearest emergency room or call 911. Patient encouraged to keep narcan kit on hand.Patient denies using any substances since last visit? YesMost recent UDS screen/oral swab results-10/05/24 POS [facility] reviewed with patient. POS HSV2-denies any current or history of breakouts-educated about HSV2 and to use barriers methods to prevent transmission and will refer to gynocology. HEPC reactive but no active infection. MAT The client state s the symptoms are chronic. Patient has verified being in the [facility] and has given verbal consent to be treated via telehealth consultation. Today's visit is being completed via; telehealth. Patient provided full consent to use this technology. Patient was advised of the limitations of a video visit via telehealth. Provider completed this visit within her office. Patient's location during this visit-[place], [place]. Fatimah reports she is getting acclimated to the program at [facility]. She reports that she has been depressed-we discussed her current medication regimen-will add Zoloft 50 mg daily. Client denies relapses and cravings at this time. Client appeared alert and attentive. Client was cooperative and participated well during session. Provider provided support and encouragement. Reports doing well and stable with current medication regimen. Patient denies any misuse of buprenorphine, selling or involved to any criminal activities and no evidence of diversion. Client denies any recent mental health issues. Denies any suicidal or homicidal thoughts. Client does not wish to reduce medication at this time due to fear of relapse. Client denies any recent hospitalizations or illness.Patient denies signs of liver failure, including jaundice, diffuse abdominal pain or pain focused in the upper right quadrant, abdominal swelling, excessive vomiting, or disorientation or confusion. If patient develops these symptoms patient agrees to report to the nearest emergency room or call 911. Patient encouraged to keep narcan kit on hand.Patient denies using any substances since last visit? YesMost recent UDS screen/oral swab results-10/05/24 POS [facility] reviewed with patient. POS HSV2-denies any current or history of breakouts-educated about HSV2 and to use barriers methods to prevent transmission and will refer to gynocology. HEPC reactive but no active infection. establish care Patient is from [facility], asking for Tylenol and Ibuprofen, c/o LBP for a long time but is now worse and radiating to both hips, hx of bulging disc confirmed by MRI (approx 2021), also c/o left ankle pain states was scheduled for ankle replacement when completion at [facility], need refills of all medicationsNeeds scheduled for Pap Smear, Mammogram and ColonoscopyDeclines Covid Vaccine but would wants Flu Vaccine tod;ay MAT The client state s the symptoms are chronic. Patient has verified being in the [facility] and has given verbal consent to be treated via telehealth consultation. Today's visit is being completed via; telehealth. Patient provided full consent to use this technology. Patient was advised of the limitations of a video visit via telehealth. Provider completed this visit within her office. Patient's location during this visit- [facility], [facility]. History of Present IllnessCOWS score-1, due to already prescribed Suboxone-took last dose today and verified with [facility].The patient has a history of substance use, including marijuana, heroin, and methamphetamine. Marijuana use began during the teenage years and continued for over 30 years. Heroin use started at age 50, with snorting as the method of administration, and continued daily for approximately two years. Methamphetamine use occurred concurrently with heroin and ceased about a year ago. The patient has been on probation for over a year due to a possession charge and experienced a probation violation for having alcohol and marijuana in the system. The patient has been using Suboxone for six months, which has been effective. There is a history of anxiety and depression, for which Wellbutrin was previously prescribed, but it was discontinued upon admission to the current facility. The patient experiences migraines and takes medication for thyroid issues. There is no known history of high blood pressure, diabetes, seizures, or sexually transmitted diseases. The patient has a history of accidental heroin overdose, which led to cessation of use. Surgical history includes gallbladder removal, hysterectomy and a T-plate in the wrist. The patient has never been hospitalized for mental health issues and reports a 20-year period of sobriety in the past.The patient presents with a history of substance use disorder, primarily involving marijuana, heroin, and methamphetamine. There is a concurrent history of anxiety and depression, previously managed with Wellbutrin. The patient is currently on Suboxone for opioid dependence and reports it to be effective. Additionally, there is a history of thyroid disorder and migraines. The patient demonstrates a stable support system, which includes family members.PlanThe treatment plan includes continuing Suboxone for opioid dependence and initiating Lexapro to manage anxiety and depression, starting with 10 mg tablets cut in half for the first week to minimize gastrointestinal side effects. The patient should follow up for regular monitoring and medication adjustment. The patient will be seen weekly. Education on the potential dental side effects of Suboxone was provided, with instructions on oral hygiene post-administration. The patient will be referred to the medical provider, Dr. Rose, for further evaluation and management of thyroid disorder and migraines.Todays UDS POS BUP. Instructions Date Instruction Additional Infor mation No Information Assessments Type Assessment Date No Information
--- OUTSIDE RECORDS SUMMARY | 2025-06-14 10:06 | XMS_ITS | Clinical Summary ---
Author Organization [facility] Address [address] [place] [address] Phone Care Team Providers Care Global Clinical Leader Name Role Phone Unavailable Primary Care Provider Unavailabl e Allergies No known active allergies Medications topiramate (TOPAMAX) 25 mg Oral Tablet Take 10 mg by mouth 2 times daily. Active gabapentin (NEURONTIN) 600 mg Oral Tablet 600 mg 3 times daily. 1 Active HYDROcodone-ela taminophen (NORCO) 7.5-325 mg Oral Tablet 1 Tablet every 8 hours as needed. 1 Active LEVOthyroxine (SYNTHROID) 50 mcg Oral Tablet 1 Active traZODone (DESYREL) 100 mg Oral Tablet Take 100 mg by mouth nightly. Active omeprazole (PRILOSEC) 40 mg Oral Capsule, Delayed Release(E.C.) Take 1 Capsule by mouth daily. 30 Capsule 2 2 Active nalOXone (NARCAN) 4 mg/actuation Nasl [place], Non-Aerosol 0.1 mL by INTRANASAL route as needed for Opioid Reversal. 2 Each 4 Active Active Problems No known active problems Surgical History Surgery Date Site/Laterality Comments KNEE ARTHROSCOPY 11/16/2014 Left HYSTERECTOMY KNEE SURGERY left WRIST SURGERY metal plate per pt CHOLECYSTECTOMY Medical History Medical History Date Comments Migraines Chronic back pain Social History Tobacco Use Types Packs/Day Years Used Date Smoking Tobacco: Every Day Cigarettes Smokeless Tobacco: Never Alcohol Use Standard Drinks/Week Comments Not Currently 0 (1 standard drink = 0.6 oz pur e alcohol) Comments No Sex and Gender Information Value Date Recorded Sex Assigned at Not on file Legal Sex Female 10:56 AM EDT Gender Identity Not on file Sexual Orientation Not on file Last Filed Vital Signs Vital Sign Reading Time Taken Comments Blood Pressure 100/85 10/13/2023 3:44 PM EST Pulse 52 10/13/2023 3:44 PM EST Temperature 37 C (98.6 F) 10/02/2021 2:56 PM EST Respiratory Rate 6 10/13/2023 3:44 PM EST Oxygen Saturation 100% 10/13/2023 3:44 PM EST Inhaled Oxygen Concentration - - Weight 73.4 kg (161 lb 12.8 oz) 07/05/2022 2:19 PM EDT Height 167.6 cm (5' 6 ) 03/23/2020 12:3 9 PM EDT Body Mass Index 26.12 03/23/2020 12:39 PM EDT Plan of Treatment Health Maintenance Due Date Last Done Comments Annual Wellness Exam 1973 Hepatitis B Vaccine (1 of 3 - 19+ 3-dose series) 1989 Cervical Cancer Screening 1991 Pap Smear 1991 HPV/Pap Cotest 2000 Breast Cancer Screening 2010 Pneumococcal Vaccine 50+ (2 of 2 - PCV) 10/17/2013 10/17/2012 Cologuard 2015 Colon Cancer Screening 2015 Colonoscopy 2015 FIT 2015 Sigmoidoscopy 2015 Virtual Colonography 2015 Zoster (1 of 2) 2020 COVID-19 Vaccine (1 - 2023-2 5 season) 2025 Influenza Vaccine (#1) 2025 3, 06/22/2014, 11/02/2013 DTaP/TDaP/Td (3 - Td or Tdap) 06/18/2033, 03/09/2011 Meningococcal B Vaccine Aged Out No l onger eligible based on patient's age to complete this topic Insurance [employer] [facility] [place] [place] [id number] [facility] [address]
[2025-06-14 10:57] LABS: Hematocrit 39.8 % (37.0-47.0); Hemoglobin 12.7 g/dL (12.2-16.2); Immature Granulocytes % 0.1 %; Mean Corpuscular HGB Conc 31.9 g/dL (31.8-35.4); Mean Corpuscular Hemoglobin 28.9 pg (27.0-31.2); Mean Corpuscular Volume 90.7 fl (81-99); Nucleated Red Blood Cells % 0 %; Platelet Count 374 K/mm3 (142-424); Red Blood Count 4.39 M/mm3 (4.20-5.40); Red Cell Distribution Width-SD 43.3 fL; White Blood Count 7.8 K/mm3 (4.8-10.8)
[2025-06-14 11:40] LABS: Alanine Aminotransferase 13 U/L (12-78); Albumin Level 4.1 g/dl (3.5-5.0); Albumin/Globulin Ratio 1.3 (1.1-1.8); Alkaline Phosphatase 138 U/L (38-126); Anion Gap 14.9 mEq/L (5-15); Aspartate Amino Transferase 19 U/L (14-36); Bilirubin,Direct 0.4 mg/dl (0.0-0.4); Bilirubin,Indirect 0.0 mg/dL (0.0-0.9); Bilirubin,Total 0.4 mg/dl (0.2-1.3); Bilirubin,Unconjugated 0.0 mg/dL (0.0-1.1); Blood Urea Nitrogen 14 mg/dl (7-17); Calcium 9.3 mg/dl (8.4-10.2); Carbon Dioxide 24 mmol/L (22.0-30.0); Chloride 107 mmol/L (98-107); Cholesterol 223 mg/dl (140-200); Creatinine,Serum 1.10 mg/dl (0.52-1.04); Estimated Glomerular Filt Rate 52 ml/min (>60); GFR (African American) 62 ML/MIN (>60); Globulin 3.1 g/dL (1.3-3.2); Glucose 128 mg/dl (74-100); HDL Cholesterol 42 mg/dl (40-60); Potassium 4.9 mmoL/L (3.5-5.1); Sodium 141 mmol/L (136-145); Total Protein,Serum 7.2 g/dl (6.3-8.2); Triglycerides 136 mg/dl (30-150)
[2025-06-14 12:09] LABS: Thyroid Stimulating Hormone 4.65 uIU/mL (0.465-4.68)
[2025-06-14 20:10] LABS: Hemoglobin A1C 5.4 % (4.0-6.0)
[2025-06-15 07:12] LABS: Hep B Core Ab, Total Negative (Negative); Hepatitis C Antibody Reactive (Non Reactive)
== END 2025-06-14 23:59 | disposition home or self-care (01) ==
LOC: LAB 10:03
PROVIDERS: PCP Family Medicine; Visit Provider Nurse Practitioner Psychiatric/Mental Health
DX: E03.9 Hypothyroidism, unspecified (principal); E78.5 Hyperlipidemia, unspecified; R82.998 Other abnormal findings in urine; Z79.899 Other long term (current) drug therapy
CPT/HCPCS: 36415; 80053; 80061; 82248; 83036; 84443; 85025; 86704; 86803; 87389